=== PATIENT | male | born 1975 | race Caucasian/White ===

== ENCOUNTER 2020-03-13 12:21 | Inpatient (IN) | payer MEDICAID, SELFPAY ==
[2020-03-13] VITALS (8 sets, daily range): BP systolic 00–142; BP diastolic 00–78; PULSE 80–122; RESP 16–50; TEMP 36–37.6; O2SAT 95–97; BMI 28.1
--- NOTE | 2020-03-13 13:15 | ECG_ITS ---
Test Reason : WEAKNESS Blood Pressure : / mmHG Vent. Rate : 123 BPM Atrial Rate : 123 BPM P-R Int : 150 ms QRS Dur : 094 ms QT Int : 322 ms P-R-T Axes : 046 003 031 degrees QTc Int : 460 ms Sinus tachycardia Intra-ventricular conduction delay Left axis deviation Abnormal ECG When compared with ECG of 27-APR-2009 14:15, Vent. rate has increased BY 49 BPM Referred By: Adriana Stewart Electronically Signed By:CLAY HORTON MD
[2020-03-13] MEDS: Acetaminophen 325 MG TABLET 975 MG PO (13:32)
[2020-03-13] MEDS: LORazepam 0.5 MG TABLET PO (13:33)
--- NOTE | 2020-03-13 13:33 | ED_ITS ---
HPI - SOB/Dyspnea General Chief Complaint: Dyspnea Stated Complaint: sob Time Seen by Provider: 03/13/20 13:01 Source: patient Mode of arrival: ambulatory Limitations: no limitations History of Present Illness HPI Narrative: 45yoM c PMHx of alcohol and cocaine dependence, depression and chronic neck pain presenting to the ED c c/o generalized weakness, subjective fevers, body aches, dizziness, dry cough with increasing shortness of breath, sore throat and upper back pain. Denies IV drug usage. Reports he currently lives in a alf in [place]. Denies any known sick contacts. Denies recent travel or any other symptoms complaints or concerns at this time. Related Data Allergies Allergy/AdvReac Type Severity Reaction Status Date / Time acetaminophen [From PERCOCET] AdvReac Unknown NAUSEA & Unverified 01/14/20 16:40 VOMITING oxycodone [From PERCOCET] AdvReac Unknown NAUSEA & Unverified 01/14/20 16:40 VOMITING Review of Systems Review of Systems: Constitutional : + Fever, + Chills, + fatigue, + Malaise ENT/Mouth : + sore throat, No runny nose Eyes: No Discharge Cardiovascular : No Chest Pain, + SOB Respiratory : + Cough, No Sputum, + Wheezing, + Dyspnea Gastrointestinal : No Nausea, No Vomiting, No Diarrhea Genitourinary : No irregular bleeding, No Dysuria, No Urinary Frequency, No Hematuria, No Urinary Incontinence, No Urgency, No Flank Pain, Musculoskeletal : + Myalgia Skin : No rash Neuro : No Headache Yes all other systems are reviewed and are negative [facility] Past Medical History Attestation statement: The following information was validated with the patient. Medical History No known health problems Social History Social History Advance Directives: No Advance Directives Information Provided: Yes Physical Exam Vital Signs: Vital Signs: Last Vital Signs Temp 99.7 F 03/13/20 15:50 Pulse 122 H 03/13/20 15:50 Resp 16 03/13/20 15:50 BP 142/78 H 03/13/20 15:50 Pulse Ox 97 03/13/20 15:50 Body Mass Index 28.1 vital signs have been reviewed as normal and appeared to be correct. Blood pressure normal. Heart rate tachycardic. Respiration rate tachypneic. Temperature normal. Oxygen saturation normal. Appearance: Alert. Oriented X3. in Mild respiratory distress. Head: Normal external exam. Normocephalic. Atraumatic. No Velazquez signs noted. No raccoon eyes noted Eyes: PERRLA. EOMI. Conjunctiva and sclera normal. Eyelids normal. ENT: EAC normal. TM's Normal. Pharynx normal. Uvula midline. Moist mucous membranes. No trismus noted. No drooling noted. No muffled voice noted. Neck: Normal inspection. Neck supple. FROM. No adenopathy. Thyroid Normal. No meningeal signs. No neck mass noted. CVS: Normal heart rate and rhythm. Heart sound normal. No murmurs noted. Pulses normal throughout. Respiratory: No respiratory distress. Painless inspiration. Breath sounds normal. No wheezes/rales/rhonchi noted. Chest nontender. No accessory muscle usage noted or decreased air movement noted. Abdomen: Soft and nontender. Bowel sounds normal in all 4 quadrants. No distention noted. No organomegaly noted. No visible injury noted. Back: No CVA tenderness. Full range of motion noted. No obvious deformities, or edema. Mild para-spinal muscular tenderness from lumbar region to coccyx. Full ROM in back and lower extremities. 5/5 strength hip extension/flexion, abduction, adduction. Mild Lumbar pain with hip flexion against resistance. Straight leg raise test negative on right; Straight leg raise test negative on left; Reflexes normal ankle and knee bilaterally; EHL motor strength normal bilaterally Skin: Skin warm and dry. Normal skin color. Normal skin turgor. No rashes/lesions/lacerations noted. Extremities: No lower extremity edema. No calf tenderness. Extremities exhibit normal range of motion. Extremities nontender. Neuro: Oriented X 3. No motor deficit. No sensory deficit. Reflexes normal. Course Course Course Narrative: 13:15PM - 45yoM c PMHx of alcohol and cocaine dependence, depression and chronic neck pain presenting to the ED c c/o generalized weakness, subjective fevers, body aches, dizziness, dry cough with increasing shortness of breath, sore throat and upper back pain. - Concern for COVID-19 vs PNA. - Plan: Labs, EKG, CXR, Blood cultures, lactic acid. Provide IV fluids, 0.5 mg of Ativan, a breathing treatment, 975 mg of Tylenol and 125 mg of Solu-Medrol then re-evaluate. Reevaluation(s) Reevaluation #1: - WBC at 4.4. Lactic acid 2.8. Ferritin 337. D-dimer 369 Otherwise all other labs are WNL. - respiratory panel revealed that patient was positive for COVID. - CTA of chest on specific - therefore patient has a viral infection not a bacterial infection therefore no antibiotics indicated at this time as patient is COVID positive. Will plan to admit for COVID. Patient understands agrees with this plan. Time: 15:45 MDM - SOB/Dyspnea Medical Records Attestation: I reviewed the patient's medical records. Lab Data Attestation: I reviewed the patient's lab results. Result diagrams: 03/13/20 13:46 03/13/20 13:47 Labs: Lab Results 03/13/20 03/13/20 03/13/20 Range/Units 13:37 13:46 13:46 WBC 4.4 L (4.8-10.8) X10*3/uL RBC 5.19 (4.60-5.80) X10*6/uL Hgb 15.8 (14.0-18.0) g/dl Hct 45.9 (42-52) % MCV 88.4 (80-98) fL MCH 30.4 (27.0-33.0) pg MCHC 34.4 (31.0-36.0) g/dl RDW 12.1 (11.0-16.0) % Plt Count 160 (160-400) X10*3/uL MPV 10.6 (9.4-12.4) fL Immature Gran % (Auto) 0.2 (0.0-0.4) % Neut % (Auto) 56.2 (45-73) % Lymph % (Auto) 33.1 (20-40) % [place] % (Auto) 10.0 (2-11) % Eos % (Auto) 0.0 (0-4) % Baso % (Auto) 0.5 (0-2) % Lymph # (Auto) 1.5 (1.2-4.9) X10*3/uL [place] # (Auto) 0.4 (0.1-1.2) X10*3/uL Eos # (Auto) 0.0 (0.0-0.4) X10*3/uL Baso # (Auto) 0.0 (0.0-0.2) X10*3/uL Abs Immat Gran (auto) 0.01 (0.00-0.03) X10*3/uL Absolute Neuts (auto) 2.5 (2.0-8.3) X10*3/uL Absolute Nucleated RBC 0.000 (0.0-0.012) X10*3/uL Nucleated RBC % (auto) 0.0 (0.0-0.2) /100WBC Smear Tech's Comments VERIFIED PT 12.5 (10.8-13.0) SEC INR 1.1 (0.9-1.1) D-Dimer NG/ML Sodium (135-145) mmol/L Potassium (3.3-5.1) mmol/l Chloride (96-108) mmol/L Carbon Dioxide (22-29) mmol/L Anion Gap (12-20) BUN (9-16) mg/dL Creatinine (0.5-1.4) mg/dL Estim Creat Clear Calc Estimated GFR Random Glucose (60-115) mg/dL Lactic Acid (0.5-2.0) mmol/L Calcium (8.4-10.2) mg/dL Magnesium (1.6-2.6) mg/dL Ferritin (20-250) ng/mL Total Bilirubin (0.0-1.0) mg/dL Direct Bilirubin (0.0-0.5) mg/dL AST (5-37) U/L ALT (0-40) U/L Alkaline Phosphatase (39-117) U/L Lactate Dehydrogenase (118-273) U/L Troponin I High Sens (<3.5-35.0) ng/L Total Protein (6.5-8.0) g/dL Albumin (3.5-5.0) g/dL Procalcitonin ng/mL Ethyl Alcohol mg/dL Respiratory Panel Simpson See Note Adenovirus (Rapid PCR) Not Detected (Not Detect.) B.pert (TEM-PCR) Not Detected (Not Detect.) B.parapertussis DNA PCR Not Detected (Not Detect.) C. pneumoniae DNA (PCR) Not Detected (Not Detect.) Coronavirus OC43 (PCR) Not Detected (Not Detect.) Coronavirus HKU1 (PCR) Not Detected (Not Detect.) Coronavirus 229E (PCR) Not Detected (Not Detect.) Coronavirus NL63 (PCR) Not Detected (Not Detect.) Human Metapneumovir PCR Not Detected (Not Detect.) Influenza A (RT-PCR) Not Detected (Not Detect.) Influenza B (RT-PCR) Not Detected (Not Detect.) M. pneumoniae (PCR) Not Detected (Not Detect.) Parainfluenza 1 (PCR) Not Detected (Not Detect.) Parainfluenza 2 (PCR) Not Detected (Not Detect.) Parainfluenza 3 (PCR) Not Detected (Not Detect.) Parainfluenza 4 (PCR) Not Detected (Not Detect.) RSV (PCR) Not Detected (Not Detect.) Entero/Rhino (PCR) Not Detected (Not Detect.) SARS-CoV-2 RNA (RT-PCR) Detected A (Not Detect.) 03/13/20 03/13/20 03/13/20 Range/Units 13:47 13:47 13:47 WBC (4.8-10.8) X10*3/uL RBC (4.60-5.80) X10*6/uL Hgb (14.0-18.0) g/dl Hct (42-52) % MCV (80-98) fL MCH (27.0-33.0) pg MCHC (31.0-36.0) g/dl RDW (11.0-16.0) % Plt Count (160-400) X10*3/uL MPV (9.4-12.4) fL Immature Gran % (Auto) (0.0-0.4) % Neut % (Auto) (45-73) % Lymph % (Auto) (20-40) % [place] % (Auto) (2-11) % Eos % (Auto) (0-4) % Baso % (Auto) (0-2) % Lymph # (Auto) (1.2-4.9) X10*3/uL [place] # (Auto) (0.1-1.2) X10*3/uL Eos # (Auto) (0.0-0.4) X10*3/uL Baso # (Auto) (0.0-0.2) X10*3/uL Abs Immat Gran (auto) (0.00-0.03) X10*3/uL Absolute Neuts (auto) (2.0-8.3) X10*3/uL Absolute Nucleated RBC (0.0-0.012) X10*3/uL Nucleated RBC % (auto) (0.0-0.2) /100WBC Smear Tech's Comments PT (10.8-13.0) SEC INR (0.9-1.1) D-Dimer 369 NG/ML Sodium 139 (135-145) mmol/L Potassium 4.6 (3.3-5.1) mmol/l Chloride 103 (96-108) mmol/L Carbon Dioxide 23 (22-29) mmol/L Anion Gap 18 (12-20) BUN 15 (9-16) mg/dL Creatinine 1.22 (0.5-1.4) mg/dL Estim Creat Clear Calc 79.0 Estimated GFR > 60 Random Glucose 98 (60-115) mg/dL Lactic Acid 2.8 H* (0.5-2.0) mmol/L Calcium 8.5 (8.4-10.2) mg/dL Magnesium 1.9 (1.6-2.6) mg/dL Ferritin (20-250) ng/mL Total Bilirubin 0.4 (0.0-1.0) mg/dL Direct Bilirubin < 0.2 (0.0-0.5) mg/dL AST 33 (5-37) U/L ALT 28 (0-40) U/L Alkaline Phosphatase 78 (39-117) U/L Lactate Dehydrogenase (118-273) U/L Troponin I High Sens (<3.5-35.0) ng/L Total Protein 7.1 (6.5-8.0) g/dL Albumin 4.2 (3.5-5.0) g/dL Procalcitonin ng/mL Ethyl Alcohol mg/dL Respiratory Panel Simpson Adenovirus (Rapid PCR) (Not Detect.) B.pert (TEM-PCR) (Not Detect.) B.parapertussis DNA PCR (Not Detect.) C. pneumoniae DNA (PCR) (Not Detect.) Coronavirus OC43 (PCR) (Not Detect.) Coronavirus HKU1 (PCR) (Not Detect.) Coronavirus 229E (PCR) (Not Detect.) Coronavirus NL63 (PCR) (Not Detect.) Human Metapneumovir PCR (Not Detect.) Influenza A (RT-PCR) (Not Detect.) Influenza B (RT-PCR) (Not Detect.) M. pneumoniae (PCR) (Not Detect.) Parainfluenza 1 (PCR) (Not Detect.) Parainfluenza 2 (PCR) (Not Detect.) Parainfluenza 3 (PCR) (Not Detect.) Parainfluenza 4 (PCR) (Not Detect.) RSV (PCR) (Not Detect.) Entero/Rhino (PCR) (Not Detect.) SARS-CoV-2 RNA (RT-PCR) (Not Detect.) 03/13/20 03/13/20 03/13/20 Range/Units 13:47 13:47 13:47 WBC (4.8-10.8) X10*3/uL RBC (4.60-5.80) X10*6/uL Hgb (14.0-18.0) g/dl Hct (42-52) % MCV (80-98) fL MCH (27.0-33.0) pg MCHC (31.0-36.0) g/dl RDW (11.0-16.0) % Plt Count (160-400) X10*3/uL MPV (9.4-12.4) fL Immature Gran % (Auto) (0.0-0.4) % Neut % (Auto) (45-73) % Lymph % (Auto) (20-40) % [place] % (Auto) (2-11) % Eos % (Auto) (0-4) % Baso % (Auto) (0-2) % Lymph # (Auto) (1.2-4.9) X10*3/uL [place] # (Auto) (0.1-1.2) X10*3/uL Eos # (Auto) (0.0-0.4) X10*3/uL Baso # (Auto) (0.0-0.2) X10*3/uL Abs Immat Gran (auto) (0.00-0.03) X10*3/uL Absolute Neuts (auto) (2.0-8.3) X10*3/uL Absolute Nucleated RBC (0.0-0.012) X10*3/uL Nucleated RBC % (auto) (0.0-0.2) /100WBC Smear Tech's Comments PT (10.8-13.0) SEC INR (0.9-1.1) D-Dimer NG/ML Sodium (135-145) mmol/L Potassium (3.3-5.1) mmol/l Chloride (96-108) mmol/L Carbon Dioxide (22-29) mmol/L Anion Gap (12-20) BUN (9-16) mg/dL Creatinine (0.5-1.4) mg/dL Estim Creat Clear Calc Estimated GFR Random Glucose (60-115) mg/dL Lactic Acid (0.5-2.0) mmol/L Calcium (8.4-10.2) mg/dL Magnesium (1.6-2.6) mg/dL Ferritin 337 H (20-250) ng/mL Total Bilirubin (0.0-1.0) mg/dL Direct Bilirubin (0.0-0.5) mg/dL AST (5-37) U/L ALT (0-40) U/L Alkaline Phosphatase (39-117) U/L Lactate Dehydrogenase 241 (118-273) U/L Troponin I High Sens 3.9 (<3.5-35.0) ng/L Total Protein (6.5-8.0) g/dL Albumin (3.5-5.0) g/dL Procalcitonin ng/mL Ethyl Alcohol < 10 mg/dL Respiratory Panel Simpson Adenovirus (Rapid PCR) (Not Detect.) B.pert (TEM-PCR) (Not Detect.) B.parapertussis DNA PCR (Not Detect.) C. pneumoniae DNA (PCR) (Not Detect.) Coronavirus OC43 (PCR) (Not Detect.) Coronavirus HKU1 (PCR) (Not Detect.) Coronavirus 229E (PCR) (Not Detect.) Coronavirus NL63 (PCR) (Not Detect.) Human Metapneumovir PCR (Not Detect.) Influenza A (RT-PCR) (Not Detect.) Influenza B (RT-PCR) (Not Detect.) M. pneumoniae (PCR) (Not Detect.) Parainfluenza 1 (PCR) (Not Detect.) Parainfluenza 2 (PCR) (Not Detect.) Parainfluenza 3 (PCR) (Not Detect.) Parainfluenza 4 (PCR) (Not Detect.) RSV (PCR) (Not Detect.) Entero/Rhino (PCR) (Not Detect.) SARS-CoV-2 RNA (RT-PCR) (Not Detect.) 03/13/20 Range/Units 13:47 WBC (4.8-10.8) X10*3/uL RBC (4.60-5.80) X10*6/uL Hgb (14.0-18.0) g/dl Hct (42-52) % MCV (80-98) fL MCH (27.0-33.0) pg MCHC (31.0-36.0) g/dl RDW (11.0-16.0) % Plt Count (160-400) X10*3/uL MPV (9.4-12.4) fL Immature Gran % (Auto) (0.0-0.4) % Neut % (Auto) (45-73) % Lymph % (Auto) (20-40) % [place] % (Auto) (2-11) % Eos % (Auto) (0-4) % Baso % (Auto) (0-2) % Lymph # (Auto) (1.2-4.9) X10*3/uL [place] # (Auto) (0.1-1.2) X10*3/uL Eos # (Auto) (0.0-0.4) X10*3/uL Baso # (Auto) (0.0-0.2) X10*3/uL Abs Immat Gran (auto) (0.00-0.03) X10*3/uL Absolute Neuts (auto) (2.0-8.3) X10*3/uL Absolute Nucleated RBC (0.0-0.012) X10*3/uL Nucleated RBC % (auto) (0.0-0.2) /100WBC Smear Tech's Comments PT (10.8-13.0) SEC INR (0.9-1.1) D-Dimer NG/ML Sodium (135-145) mmol/L Potassium (3.3-5.1) mmol/l Chloride (96-108) mmol/L Carbon Dioxide (22-29) mmol/L Anion Gap (12-20) BUN (9-16) mg/dL Creatinine (0.5-1.4) mg/dL Estim Creat Clear Calc Estimated GFR Random Glucose (60-115) mg/dL Lactic Acid (0.5-2.0) mmol/L Calcium (8.4-10.2) mg/dL Magnesium (1.6-2.6) mg/dL Ferritin (20-250) ng/mL Total Bilirubin (0.0-1.0) mg/dL Direct Bilirubin (0.0-0.5) mg/dL AST (5-37) U/L ALT (0-40) U/L Alkaline Phosphatase (39-117) U/L Lactate Dehydrogenase (118-273) U/L Troponin I High Sens (<3.5-35.0) ng/L Total Protein (6.5-8.0) g/dL Albumin (3.5-5.0) g/dL Procalcitonin 0.04 ng/mL Ethyl Alcohol mg/dL Respiratory Panel Simpson Adenovirus (Rapid PCR) (Not Detect.) B.pert (TEM-PCR) (Not Detect.) B.parapertussis DNA PCR (Not Detect.) C. pneumoniae DNA (PCR) (Not Detect.) Coronavirus OC43 (PCR) (Not Detect.) Coronavirus HKU1 (PCR) (Not Detect.) Coronavirus 229E (PCR) (Not Detect.) Coronavirus NL63 (PCR) (Not Detect.) Human Metapneumovir PCR (Not Detect.) Influenza A (RT-PCR) (Not Detect.) Influenza B (RT-PCR) (Not Detect.) M. pneumoniae (PCR) (Not Detect.) Parainfluenza 1 (PCR) (Not Detect.) Parainfluenza 2 (PCR) (Not Detect.) Parainfluenza 3 (PCR) (Not Detect.) Parainfluenza 4 (PCR) (Not Detect.) RSV (PCR) (Not Detect.) Entero/Rhino (PCR) (Not Detect.) SARS-CoV-2 RNA (RT-PCR) (Not Detect.) Imaging Data CTA of chest: Attestation: I personally reviewed and interpreted this imaging study as follows: Radiologist's impression: FINDINGS: The heart is normal in size. There is no pericardial effusion. No filling defect identified within the main or segmental pulmonary arteries. Subsegmental pulmonary arteries are suboptimally visualized secondary to respiratory motion artifact, however, no gross distal pulmonary arterial filling defects are appreciated. Nonaneurysmal thoracic aorta. The lungs are adequately aerated. Patchy primarily groundglass densities are noted within the bilateral lung bases and left upper lobe. Some emphysematous changes are noted throughout the lungs, also most prominent within the left upper lobe. No pleural effusion is present. No pneumothorax. Visualized portion of the upper abdomen are grossly unremarkable. Mild diffuse degenerative changes of the spine. CT/CT angio chest PE protocol IMPRESSION: Unfortunately, today's examination is significantly limited secondary to respiratory motion artifact. No gross main or segmental pulmonary emboli are noted, however, subsegmental pulmonary emboli cannot be excluded. There is patchy left upper lobe airspace disease with some associated cystic emphysematous changes which are nonspecific. This may represent an acute on chronic infectious process. Unfortunately, there is no prior imaging available for comparison. Dependent patchy opacities are poorly visualized and may represent nothing more than atelectasis. Clinical correlation is recommended. Given poor quality of today's CTA, repeat imaging can be obtained if clinically indicated once the patient is able to better breath-hold ECG Data Attestation: I personally reviewed and interpreted this ECG as follows: ECG interpretation date: 03/13/20 ECG interpretation time: 15:43 Interpretation: Sinus tachycardia with ventricular rate of 123 with a normal DE interval and normal QRS duration normal QT/QTC interval. No acute ischemic changes noted. Similar compared to 04/27/2009. Critical Care Time Critical Care Time Critical Care Time: Yes Total Critical Care Time: 60 Attestation: I personally attest to this time spent taking care of the patient Discharge Plan Discharge Clinical Impression: COVID-19, Viral sepsis Patient Disposition: Admitted As Inpatient
[2020-03-13] MEDS: 0.9 % Sodium Chloride 1,000 ML 500 ML IVCONT (13:51)
[2020-03-13 13:59] LABS: Basophils Percent Auto 0.5 % (0-2); Hematocrit 45.9 % (42-52); Hemoglobin 15.8 g/dl (14.0-18.0); Imm Gran Abs Auto 0.01 X10*3/uL (0.00-0.03); Imm Gran Pct Auto 0.2 % (0.0-0.4); Lymphocytes Absolute Auto 1.5 X10*3/uL (1.2-4.9); Lymphocytes Percent Auto 33.1 % (20-40); MANUAL DIFF FLAG SCAN; Mean Corpuscular HGB Conc 34.4 g/dl (31.0-36.0); Mean Corpuscular Hemoglobin 30.4 pg (27.0-33.0); Mean Corpuscular Volume 88.4 fL (80-98); Mean Platelet Volume 10.6 fL (9.4-12.4); Monocytes Absolute Auto 0.4 X10*3/uL (0.1-1.2); Neutrophils Absolute Auto 2.5 X10*3/uL (2.0-8.3); Neutrophils Percent Auto 56.2 % (45-73); Platelet Count 160 X10*3/uL (160-400); Red Blood Count 5.19 X10*6/uL (4.60-5.80); Red Cell Distribution Width 12.1 % (11.0-16.0); SCAN SMEAR FLAG 1; White Blood Count 4.4 X10*3/uL (4.8-10.8)
[2020-03-13] MEDS: Albuterol Sulfate (0.083%) 2.5 MG/3 ML VIAL.NEB 10 MG INHALE (14:00)
[2020-03-13 14:05] LABS: INTERNATIONAL NORM RATIO 1.1 (0.9-1.1); Prothrombin Time 12.5 SEC (10.8-13.0)
[2020-03-13 14:08] LABS: Adenovirus PCR Not Detected (Not Detect.); Bordetella parapertussis PCR Not Detected (Not Detect.); Bordetella pertussis PCR Not Detected (Not Detect.); Chlamydia pneumoniae PCR Not Detected (Not Detect.); Coronavirus 229E PCR Not Detected (Not Detect.); Coronavirus HKU1 PCR Not Detected (Not Detect.); Coronavirus NL63 PCR Not Detected (Not Detect.); Coronavirus OC43 PCR Not Detected (Not Detect.); Human metapneumovirus PCR Not Detected (Not Detect.); Influenza A PCR Not Detected (Not Detect.); Influenza B PCR Not Detected (Not Detect.); Mycoplasma pneumoniae PCR Not Detected (Not Detect.); Parainfluenza 1 PCR Not Detected (Not Detect.); Parainfluenza 2 PCR Not Detected (Not Detect.); Parainfluenza 3 PCR Not Detected (Not Detect.); Parainfluenza 4 PCR Not Detected (Not Detect.); RSV PCR Not Detected (Not Detect.); Rhino/Enterovirus PCR Not Detected (Not Detect.)
[2020-03-13 14:09] LABS: D Dimer 369 NG/ML
--- NOTE | 2020-03-13 14:19 | CT_ITS ---
EXAMINATION: CT ANGIOGRAM OF THE CHEST WITH AND WITHOUT CONTRAST (CT PULMONARY ANGIOGRAM FOR PE) CLINICAL INFORMATION: Shortness of breath with elevated d-dimer. COMPARISON: None TECHNIQUE: Prior to contrast administration, noncontrast localization images were obtained. Subsequently, multidetector volumetric imaging was performed from the thoracic inlet to below the diaphragms following the administration of 66 mLOmnipaque 350 intravenous contrast. No contrast reaction reported Today's examination is limited secondary to respiratory motion artifact. Sagittal, coronal, and MIP oblique sagittal reformatted images were obtained on the CT workstation, uploaded to PACS, and reviewed. This CT examination was performed using dose optimization techniques as appropriate, variously including the following: *Automated exposure control *Adjustment of mA and/or kV according to patient size (this includes techniques or standardized protocols for targeted exams where dose is matched to indication/reason for exam; i.e. extremities or head) *Use of iterative reconstruction technique Total exam dose-length product 301 mGy-cm FINDINGS: The heart is normal in size. There is no pericardial effusion. No filling defect identified within the main or segmental pulmonary arteries. Subsegmental pulmonary arteries are suboptimally visualized secondary to respiratory motion artifact, however, no gross distal pulmonary arterial filling defects are appreciated. Nonaneurysmal thoracic aorta. The lungs are adequately aerated. Patchy primarily groundglass densities are noted within the bilateral lung bases and left upper lobe. Some emphysematous changes are noted throughout the lungs, also most prominent within the left upper lobe. No pleural effusion is present. No pneumothorax. Visualized portion of the upper abdomen are grossly unremarkable. Mild diffuse degenerative changes of the spine. CT/CT angio chest PE protocol IMPRESSION: Unfortunately, today's examination is significantly limited secondary to respiratory motion artifact. No gross main or segmental pulmonary emboli are noted, however, subsegmental pulmonary emboli cannot be excluded. There is patchy left upper lobe airspace disease with some associated cystic emphysematous changes which are nonspecific. This may represent an acute on chronic infectious process. Unfortunately, there is no prior imaging available for comparison. Dependent patchy opacities are poorly visualized and may represent nothing more than atelectasis. Clinical correlation is recommended. Given poor quality of today's CTA, repeat imaging can be obtained if clinically indicated once the patient is able to better breath-hold.
[2020-03-13 14:23] LABS: Ethanol < 10 mg/dL
[2020-03-13 14:24] LABS: Lactate Dehydrogenase 241 U/L (118-273)
[2020-03-13 14:25] LABS: Alanine Aminotransferase 28 U/L (0-40); Albumin Level 4.2 g/dL (3.5-5.0); Alkaline Phosphatase 78 U/L (39-117); Anion Gap 18 (12-20); Aspartate Amino Transferase 33 U/L (5-37); Bilirubin Direct < 0.2 mg/dL (0.0-0.5); Bilirubin Total 0.4 mg/dL (0.0-1.0); Blood Urea Nitrogen 15 mg/dL (9-16); Calcium 8.5 mg/dL (8.4-10.2); Carbon Dioxide 23 mmol/L (22-29); Chloride 103 mmol/L (96-108); Estimated Glomerular Filt Rate > 60; Glucose Random 98 mg/dL (60-115); Magnesium 1.9 mg/dL (1.6-2.6); Potassium 4.6 mmol/l (3.3-5.1); Sodium 139 mmol/L (135-145); Total Protein 7.1 g/dL (6.5-8.0)
[2020-03-13 14:27] LABS: SLIDE REVIEW VERIFIED
[2020-03-13 14:29] LABS: Troponin-I High Sensitivity 3.9 ng/L (<3.5-35.0)
[2020-03-13 14:31] LABS: Lactic Acid 2.8 mmol/L (0.5-2.0)
[2020-03-13 14:43] LABS: Procalcitonin 0.04 ng/mL
[2020-03-13 14:46] LABS: Ferritin 337 ng/mL (20-250)
[2020-03-13 15:01] LABS: SARS-CoV-2 PCR Detected (Not Detect.)
[2020-03-13 15:57] LABS: Reflex Lactate? Lactic Acid Added
[2020-03-13] MEDS: iohexoL 350 MG/ML 100 ML INFUS..BTL IV (16:41)
[2020-03-13 16:59] LABS: ~Lactic Acid-LAB USE ONLY 2.8 mmol/L (0.5-2.0)
[2020-03-13] MEDS: 0.9 % Sodium Chloride 1,000 ML 999 ML IVCONT ×2 (17:11→21:56)
[2020-03-13] MEDS: LORazepam 2 MG/ML VIAL 0.5 MG IVPUSH (17:12)
--- NOTE | 2020-03-13 17:52 | P.HPHOSP_ITS ---
History of Present Illness Date of Service: 03/13/20 Chief Complaint: shortness of breath Three days of weakness, neck pain, and dry cough. [facility] Medical History No known health problems Social History Smoking Status: Current every day smoker Use of substances other than those prescribed or required for medical reasons: Yes Substance Use Type: Crack/Cocaine Advance Directives: No Advance Directives Information Provided: Yes Meds Allergies Allergy/AdvReac Type Severity Reaction Status Date / Time acetaminophen [From PERCOCET] AdvReac Unknown NAUSEA & Unverified 01/14/20 16:40 VOMITING oxycodone [From PERCOCET] AdvReac Unknown NAUSEA & Unverified 01/14/20 16:40 VOMITING Home Medications Medication Instructions Recorded Confirmed Type No Known Home Meds 03/13/20 03/13/20 History Physical Exam Vital Signs and Narrative: Vital Signs: Last Vital Signs Temp 99.0 F 03/13/20 17:14 Pulse 111 H 03/13/20 17:14 Resp 30 H 03/13/20 17:14 BP 105/61 03/13/20 17:14 Pulse Ox 97 03/13/20 15:50 Body Mass Index 28.1 Results Labs CBC and Chem 7: 03/13/20 13:46 03/13/20 13:47 Labs: Laboratory Results - last 24 hr 03/13/20 03/13/20 03/13/20 13:37 13:46 13:46 MCV 88.4 MCH 30.4 MCHC 34.4 RDW 12.1 Plt Count 160 MPV 10.6 Immature Gran % (Auto) 0.2 Neut % (Auto) 56.2 Lymph % (Auto) 33.1 [place] % (Auto) 10.0 Eos % (Auto) 0.0 Baso % (Auto) 0.5 Lymph # (Auto) 1.5 [place] # (Auto) 0.4 Eos # (Auto) 0.0 Baso # (Auto) 0.0 Abs Immat Gran (auto) 0.01 Absolute Neuts (auto) 2.5 Absolute Nucleated RBC 0.000 Nucleated RBC % (auto) 0.0 Smear Tech's Comments VERIFIED PT 12.5 INR 1.1 D-Dimer Anion Gap Estim Creat Clear Calc Estimated GFR Random Glucose Lactic Acid Lactic Acid Fup @ 2Hr Calcium Magnesium Ferritin Total Bilirubin Direct Bilirubin AST ALT Alkaline Phosphatase Lactate Dehydrogenase Troponin I High Sens Total Protein Albumin Procalcitonin Ethyl Alcohol Respiratory Panel Simpson See Note Adenovirus (Rapid PCR) Not Detected B.pert (TEM-PCR) Not Detected B.parapertussis DNA PCR Not Detected C. pneumoniae DNA (PCR) Not Detected Coronavirus OC43 (PCR) Not Detected Coronavirus HKU1 (PCR) Not Detected Coronavirus 229E (PCR) Not Detected Coronavirus NL63 (PCR) Not Detected Human Metapneumovir PCR Not Detected Influenza A (RT-PCR) Not Detected Influenza B (RT-PCR) Not Detected M. pneumoniae (PCR) Not Detected Parainfluenza 1 (PCR) Not Detected Parainfluenza 2 (PCR) Not Detected Parainfluenza 3 (PCR) Not Detected Parainfluenza 4 (PCR) Not Detected RSV (PCR) Not Detected Entero/Rhino (PCR) Not Detected SARS-CoV-2 RNA (RT-PCR) Detected A 03/13/20 03/13/20 03/13/20 13:47 13:47 13:47 MCV MCH MCHC RDW Plt Count MPV Immature Gran % (Auto) Neut % (Auto) Lymph % (Auto) [place] % (Auto) Eos % (Auto) Baso % (Auto) Lymph # (Auto) [place] # (Auto) Eos # (Auto) Baso # (Auto) Abs Immat Gran (auto) Absolute Neuts (auto) Absolute Nucleated RBC Nucleated RBC % (auto) Smear Tech's Comments PT INR D-Dimer 369 Anion Gap 18 Estim Creat Clear Calc 79.0 Estimated GFR > 60 Random Glucose 98 Lactic Acid 2.8 H* Lactic Acid Fup @ 2Hr Calcium 8.5 Magnesium 1.9 Ferritin Total Bilirubin 0.4 Direct Bilirubin < 0.2 AST 33 ALT 28 Alkaline Phosphatase 78 Lactate Dehydrogenase Troponin I High Sens Total Protein 7.1 Albumin 4.2 Procalcitonin Ethyl Alcohol Respiratory Panel Simpson Adenovirus (Rapid PCR) B.pert (TEM-PCR) B.parapertussis DNA PCR C. pneumoniae DNA (PCR) Coronavirus OC43 (PCR) Coronavirus HKU1 (PCR) Coronavirus 229E (PCR) Coronavirus NL63 (PCR) Human Metapneumovir PCR Influenza A (RT-PCR) Influenza B (RT-PCR) M. pneumoniae (PCR) Parainfluenza 1 (PCR) Parainfluenza 2 (PCR) Parainfluenza 3 (PCR) Parainfluenza 4 (PCR) RSV (PCR) Entero/Rhino (PCR) SARS-CoV-2 RNA (RT-PCR) 03/13/20 03/13/20 03/13/20 13:47 13:47 13:47 MCV MCH MCHC RDW Plt Count MPV Immature Gran % (Auto) Neut % (Auto) Lymph % (Auto) [place] % (Auto) Eos % (Auto) Baso % (Auto) Lymph # (Auto) [place] # (Auto) Eos # (Auto) Baso # (Auto) Abs Immat Gran (auto) Absolute Neuts (auto) Absolute Nucleated RBC Nucleated RBC % (auto) Smear Tech's Comments PT INR D-Dimer Anion Gap Estim Creat Clear Calc Estimated GFR Random Glucose Lactic Acid Lactic Acid Fup @ 2Hr Calcium Magnesium Ferritin 337 H Total Bilirubin Direct Bilirubin AST ALT Alkaline Phosphatase Lactate Dehydrogenase 241 Troponin I High Sens 3.9 Total Protein Albumin Procalcitonin Ethyl Alcohol < 10 Respiratory Panel Simpson Adenovirus (Rapid PCR) B.pert (TEM-PCR) B.parapertussis DNA PCR C. pneumoniae DNA (PCR) Coronavirus OC43 (PCR) Coronavirus HKU1 (PCR) Coronavirus 229E (PCR) Coronavirus NL63 (PCR) Human Metapneumovir PCR Influenza A (RT-PCR) Influenza B (RT-PCR) M. pneumoniae (PCR) Parainfluenza 1 (PCR) Parainfluenza 2 (PCR) Parainfluenza 3 (PCR) Parainfluenza 4 (PCR) RSV (PCR) Entero/Rhino (PCR) SARS-CoV-2 RNA (RT-PCR) 03/13/20 03/13/20 13:47 16:27 MCV MCH MCHC RDW Plt Count MPV Immature Gran % (Auto) Neut % (Auto) Lymph % (Auto) [place] % (Auto) Eos % (Auto) Baso % (Auto) Lymph # (Auto) [place] # (Auto) Eos # (Auto) Baso # (Auto) Abs Immat Gran (auto) Absolute Neuts (auto) Absolute Nucleated RBC Nucleated RBC % (auto) Smear Tech's Comments PT INR D-Dimer Anion Gap Estim Creat Clear Calc Estimated GFR Random Glucose Lactic Acid Lactic Acid Fup @ 2Hr 2.8 H* Calcium Magnesium Ferritin Total Bilirubin Direct Bilirubin AST ALT Alkaline Phosphatase Lactate Dehydrogenase Troponin I High Sens Total Protein Albumin Procalcitonin 0.04 Ethyl Alcohol Respiratory Panel [place] Adenovirus (Rapid PCR) B.pert (TEM-PCR) B.parapertussis DNA PCR C. pneumoniae DNA (PCR) Coronavirus OC43 (PCR) Coronavirus HKU1 (PCR) Coronavirus 229E (PCR) Coronavirus NL63 (PCR) Human Metapneumovir PCR Influenza A (RT-PCR) Influenza B (RT-PCR) M. pneumoniae (PCR) Parainfluenza 1 (PCR) Parainfluenza 2 (PCR) Parainfluenza 3 (PCR) Parainfluenza 4 (PCR) RSV (PCR) Entero/Rhino (PCR) SARS-CoV-2 RNA (RT-PCR) Imaging Radiologist's Impressions: Impressions Chest CTA 03/13/20 14:19 IMPRESSION: Unfortunately, today's examination is significantly limited secondary to respiratory motion artifact. No gross main or segmental pulmonary emboli are noted, however, subsegmental pulmonary emboli cannot be excluded. There is patchy left upper lobe airspace disease with some associated cystic emphysematous changes which are nonspecific. This may represent an acute on chronic infectious process. Unfortunately, there is no prior imaging available for comparison. Dependent patchy opacities are poorly visualized and may represent nothing more than atelectasis. Clinical correlation is recommended. Given poor quality of today's CTA, repeat imaging can be obtained if clinically indicated once the patient is able to better breath-hold.
[2020-03-13] MEDS: PHENobarbitaL sodium 130 MG/ML VIAL 159 MG IM (18:29)
[2020-03-13 18:32] LABS: Reflex Lactate? 2 Y
--- NOTE | 2020-03-13 18:33 | PC.NURSE ---
AWAITING [facility] RN CALL BACK FOR REPORT.
--- NOTE | 2020-03-13 19:19 | PC.NURSE ---
Report taken from estephania Wilson awaiting transport to floor. Multiple attempts at trying to give report have been unsuccessful. Pt medicated with Nicotine patch per EMAR.
[2020-03-13] MEDS: Nicotine 21 MG PATCH.TD24 TRANSDERMA (19:20)
[2020-03-13 20:37] LABS: C Reactive Protein 3.67 mg/dL (< or = 0.50)
--- NOTE | 2020-03-13 20:41 | HP_ITS ---
DATE OF SERVICE: 03/13/2020 CHIEF COMPLAINT: Generalized weakness and neck discomfort. HISTORY OF PRESENTING ILLNESS: This is a 45-year-old gentleman with past medical history significant for mood disorder, bipolar disorder, chronic cocaine abuse, history of active tobacco use, who presented to [facility] with 3-day history of generally not feeling well with worsening generalized weakness, subjective fevers, and body aches, dry cough, and shortness of breath. The patient has chronic neck pain. He denies any sick contacts. He lives alone. He denies any recent history of travel. He denies nausea, vomiting, or diarrhea. He did not check his fevers. On arrival to the emergency room, the patient was noted to be tachypneic, tachycardic with a pulse of 122, blood pressure was stable at 142/78, finger oximetry was 97% on room air. The patient underwent extensive testing in the emergency room since his COVID-19 test came back positive. His lactic acid is elevated at 2.8, ferritin is 337. D-dimer 369. The patient underwent a CTA chest that showed no significant evidence of PE in the major arteries. There is bibasilar airspace disease and left upper lobe disease as well as emphysematous changes. The patient treated in the emergency room with IV fluids and Ativan. At the present time, the patient appears very anxious with significant tremors most pronounced in the right upper extremity, which according to the patient chronic. PAST MEDICAL HISTORY: Significant for: 1. History of bipolar disorder with multiple prior psychiatric hospitalizations. Previously, the patient is on lithium, currently not on any medications. 2. History of active cocaine abuse. The patient snorts cocaine, but denies IV drug use. He has history of tobacco use disorder. Continued to smoke 1 pack per day. PAST SURGICAL HISTORY: Benign. FAMILY HISTORY: The patient denies any significant family history of cardiac disease. SOCIAL HISTORY: The patient lives alone. He smokes 1 pack per day. According to him, he drinks 1 to 2 beers a day, but looking into his prior history, which seems that he has been drinking more than what he is admitting to. Previously, he mentioned that he was drinking 3 to 4, 12-ounce beers and prior to that, he was drinking alcohol heavily. He uses cocaine on a daily basis. REVIEW OF SYSTEMS: PRODUCTION SUPV: The patient complained of mild lightheadedness. He denies any headache. GENERAL: He complains of subjective fevers, chills. GASTROINTESTINAL: He denies any nausea, vomiting, or diarrhea. CVS: He denies any chest discomfort. RESPIRATORY: He complains of dry cough and shortness of breath. MUSCULOSKELETAL: The patient has chronic neck pain with no worsening symptoms. He also complained of lower back discomfort. SKIN: He denies any rashes. Rest of all other system are reviewed and negative. PHYSICAL EXAMINATION: GENERAL: The patient is resting comfortably. Does not appear to be in acute distress. VITAL SIGNS: Temperature of 99.7, pulse of 122, respiratory rate of 16, blood pressure 142/78, pulse ox 97% on room air. HEENT: Pupils equal, round, and reactive to light and accommodation. Anicteric sclerae. NECK: Supple. No increased JVD. No lymphadenopathy. HEART: Tachy, regular. No murmurs appreciated. RESPIRATORY: The patient in no respiratory distress. Diminished breath sound with coarse breath sounds at bases. No expiratory wheeze or rhonchi noted. ABDOMEN: Soft, nontender. Bowel sounds are audible. EXTREMITIES: Without clubbing, cyanosis, or edema. SKIN: Without any rashes. NEURO: The patient is alert, oriented. No motor deficit noted. The patient noted to have significant tremors. PSYCHIATRIC: The patient appears very anxious. LABORATORY DATA: Sodium 139, potassium 4.6, BUN 1.22, hematocrit of 45.9. Normal INR. Platelet of 160. IMAGING STUDIES: As mentioned earlier. EKG shows sinus tachycardia, otherwise no acute ischemic changes noted. ASSESSMENT AND PLAN: This is a 45-year-old gentleman with past medical history of bipolar disorder, history of daily tobacco use, alcohol abuse, and cocaine use, presented to [facility] due to generalized weakness and dry cough, subjective fevers. The patient has been diagnosed to have sepsis related to COVID-19 infection. 1. Sepsis related to COVID-19 infection. Due to history of emphysema with daily smoking, the patient is a high risk for worsening infection, therefore will be admitted under isolation. The patient will be treated with supportive care including cough medications, Ventolin MDI, Tylenol, antiemetics. We will hold off on further IV hydration. If the patient's oxygenation declines, the patient will be considered for IV dexamethasone and remdesivir treatment. 2. History of tobacco use disorder. The patient will be placed on nicotine patch, counseling done. 3. Alcohol abuse and high risk of withdrawal. The patient is minimizing use of alcohol, but due to his tremors, his anxiety, the patient will be treated with phenobarb protocol. The patient's alcohol level is less than 10. The patient will be seen by CARE team. 4. Lactic acidosis. Likely due to dehydration, decreased by p.o. intake infection as well as alcohol abuse. The patient has received 1.5 L of IV fluid. We will follow lactic acid level, also cocaine likely contributing to it. 5. History of polysubstance abuse. The patient with history of daily cocaine use. We will provide supportive care and we will obtain a CARE team consultation. 6. Deep venous thrombosis prophylaxis. The patient will be placed on Lovenox. MD JOSE ANGEL Perez/YESSY / [phone]
[2020-03-13] MEDS: PHENobarbitaL sodium 130 MG/ML VIAL 119 MG IM (20:55)
[2020-03-13] MEDS: Enoxaparin Sodium 40 MG/0.4 ML SYRINGE SUBCUT (20:55)
[2020-03-13] MEDS: 0.9 % Sodium Chloride Flush 3 ML SYRINGE IVFLUSH (20:55)
[2020-03-13 21:36] LABS: ~Lactic Acid-LAB USE ONLY 7.7 mmol/L (0.5-2.0)
[2020-03-14] MEDS: PHENobarbitaL sodium 130 MG/ML VIAL 119 MG IM (00:11)
[2020-03-14 01:22] LABS: Lactate Dehydrogenase 205 U/L (118-273)
[2020-03-14 03:07] LABS: Lactic Acid 2.2 mmol/L (0.5-2.0)
[2020-03-14] MEDS: Magnesium Hydrox/Alum Hydrox 30 ML ORAL.SUSP 15 ML PO (03:24)
[2020-03-14 03:33] LABS: Glucose Urine UA >=1000 MG/DL (NEG); Leukocyte Esterase Urine NEG (NEG); Nitrite Urine NEG (NEG); Urine Blood NEG (NEG); Urine Ketones NEG (NEG); Urine Protein NEG (NEG-TRACE)
[2020-03-14 03:34] LABS: Appearance Urine CLEAR; Color Urine YELLOW
[2020-03-14 04:02] VITALS: BP 114/72; PULSE 92; RESP 18; TEMP 36.8; O2SAT 95
[2020-03-14 04:02] LABS: RBC Urine 0 /HPF (0); WBC Urine 0 /HPF (0-4)
[2020-03-14 04:06] LABS: Amphetamine Screen Urine Not Detected (Not Detect); Barbiturates, Urine POSITIVE (Not Detect); Benzodiazepines Screen Urine Not Detected (Not Detect); Cannabinoid Screen Urine Not Detected (Not Detect); Cocaine Screen Urine POSITIVE (Not Detect); Opiate Screen Urine POSITIVE (Not Detect); Phencyclidine Screen Urine Not Detected (Not Detect)
[2020-03-14 04:27] LABS: Reflex Lactate? Lactic Acid Added
[2020-03-14 05:11] LABS: MANUAL DIFF FLAG NO
[2020-03-14 05:19] LABS: Basophils Percent Auto 0.2 % (0-2); Hematocrit 37.7 % (42-52); Hemoglobin 12.9 g/dl (14.0-18.0); Imm Gran Abs Auto 0.02 X10*3/uL (0.00-0.03); Imm Gran Pct Auto 0.4 % (0.0-0.4); Lymphocytes Absolute Auto 0.9 X10*3/uL (1.2-4.9); Lymphocytes Percent Auto 15.9 % (20-40); Mean Corpuscular HGB Conc 34.2 g/dl (31.0-36.0); Mean Corpuscular Hemoglobin 30.4 pg (27.0-33.0); Mean Corpuscular Volume 88.7 fL (80-98); Monocytes Absolute Auto 0.4 X10*3/uL (0.1-1.2); Monocytes Percent Auto 7.7 % (2-11); Neutrophils Absolute Auto 4.2 X10*3/uL (2.0-8.3); Neutrophils Percent Auto 75.8 % (45-73); Platelet Count 170 X10*3/uL (160-400); Red Blood Count 4.25 X10*6/uL (4.60-5.80); Red Cell Distribution Width 12.1 % (11.0-16.0); White Blood Count 5.5 X10*3/uL (4.8-10.8)
[2020-03-14 05:41] LABS: ~Lactic Acid-LAB USE ONLY 1.8 mmol/L (0.5-2.0)
--- NOTE | 2020-03-14 05:45 | PC.NURSE ---
Patient's lactic acid 2.8 while in ED, on admission retested 7.7. MD notified. MD ordered NS 500L Bolus. Lactic acid redrawn and trended down to 1.8. Will continue to monitor.
[2020-03-14 05:58] LABS: Anion Gap 13 (12-20); Blood Urea Nitrogen 14 mg/dL (9-16); Carbon Dioxide 22 mmol/L (22-29); Chloride 107 mmol/L (96-108); Creatinine Clr Calc Pharmacy 100.4; Estimated Glomerular Filt Rate > 60; Glucose Random 166 mg/dL (60-115); Magnesium 2.1 mg/dL (1.6-2.6); Potassium 4.2 mmol/l (3.3-5.1); Sodium 138 mmol/L (135-145)
[2020-03-14 08:00] VITALS: BP 107/68; PULSE 88; RESP 22; TEMP 36.8; O2SAT 97
[2020-03-14] MEDS: PHENobarbitaL 15 MG TABLET 45 MG PO ×2 (08:39→20:25)
[2020-03-14] MEDS: Nicotine 21 MG PATCH.TD24 TRANSDERMA (08:40)
[2020-03-14] MEDS: 0.9 % Sodium Chloride Flush 3 ML SYRINGE IVFLUSH ×3 (08:40→20:25)
--- NOTE | 2020-03-14 09:34 | MHC.CM.PN ---
Male 45 dx COVID+. Pt lives with family and G.F.. He is independent all functional mobility. DP home no services family transport.
--- NOTE | 2020-03-14 11:02 | HO.PM.IMPN ---
Subjective Subjective Date of Service: 03/14/20 Interval History: Patient complaining of persistent dry cough, shortness of breath and dry mouth, and generally not feeling well with generalized body ache,no fever chills , oxygenation remains stable. Review of Systems General Body aches, weakness, dry mouth. CVS no chest pain, no palpitation. Respiratory complaining of dry cough, shortness of breath Gastrointestinal no nausea no vomiting, no abdominal pain Physical Exam Vital Signs: Vital Signs: Last Vital Signs Temp 98.2 F 03/14/20 08:00 Pulse 88 03/14/20 08:00 Resp 22 H 03/14/20 08:00 BP 107/68 03/14/20 08:00 Pulse Ox 97 03/14/20 08:00 Body Mass Index 28.1 General patient resting comfortably in no acute distress. Neck no JVD. CVS regular, rate rhythm, Respiratory lungs clear to auscultation, no wheeze, no rhonchi. Gastrointestinal abdomen soft, nontender, bowel sounds audible, no guarding , no rigidity. Extremities no clubbing ,cyanosis or edema. Neuro nonfocal, speech clear. less tremors Skin no rash psych persistent anxiety Objective Data Current Medications Generic Name Dose Route Start Last Admin Trade Name Freq PRN Reason Stop Dose Admin Acetaminophen 650 mg 03/13/20 17:41 Acetaminophen 325 Mg Tablet PO Q6H PRN Pain, Mild (Pain Scale 1-3) Albuterol Sulfate 2 puff 03/13/20 17:41 Albuterol Sulfate 90 Mcg 8 Gm Inhaler INHALE RQ4H PRN Shortness of Breath Benzocaine 1 lozenge 03/14/20 10:58 Throat Lozenge, Medicated Lozenge MUCOUS MEM Q4H PRN Sore Throat Enoxaparin Sodium 40 mg 03/13/20 22:00 03/13/20 20:55 Enoxaparin Sodium 40 Mg/0.4 Ml Syringe SUBCUT 40 mg Q24H JONAS Administration Guaifenesin/Dextromethorphan 10 ml 03/14/20 10:58 Guaifenesin Dm 200/20/10 Ml 10 Ml Syrup PO Q6H PRN Cough Medication 1 each 03/14/20 09:00 No Benzodiazepines MISCELLANE DAILY JONAS Nicotine 21 mg 03/13/20 17:41 03/14/20 08:40 Nicotine 21 Mg Patch.Td24 TRANSDERMA 21 mg DAILY JONAS Administration Ondansetron HCl 4 mg 03/13/20 17:42 Ondansetron Hcl 4 Mg/2 Ml Vial IVPUSH Q8H PRN Nausea Pharmacy Consult 1 each 03/13/20 17:41 Consult Rx Etoh Phenob Dosing MISCELLANE ONCE PRN Consult order Protocol Phenobarbital 45 mg 03/14/20 09:00 03/14/20 08:39 Phenobarbital 15 Mg Tablet PO 03/15/20 21:01 45 mg BID JONSA Administration Phenobarbital 15 mg 03/16/20 09:00 Phenobarbital 15 Mg Tablet PO 03/17/20 21:01 BID JONAS Phenobarbital 15 mg 03/18/20 09:00 Phenobarbital 15 Mg Tablet PO 03/19/20 09:01 DAILY JONAS Sodium Chloride 3 ml 03/14/20 00:00 03/14/20 08:40 0.9 % Sodium Chloride Flush 3 Ml Syringe IVFLUSH 3 ml QSHIFT JONAS Administration Labs CBC & Chem 7: 03/14/20 04:36 03/14/20 04:36 Microbiology Microbiology Results: Microbiology 03/13/20 15:17 Blood - Venous Blood Culture - Preliminary Assessment and Plan (1) COVID-19: Status: Acute (2) Viral sepsis: Status: Acute (3) Chronic neck pain: Status: Acute (4) Cocaine abuse: Status: Acute (5) Alcohol dependence: Status: Acute (6) Depression: Status: Acute Assessment and Plan: 45-year-old gentleman with past medical history of bipolar disorder,history of daily tobacco use, alcohol abuse, and cocaine use, presented to [facility] due to generalized weakness and dry cough, subjective fevers. The patient has been diagnosed to have sepsis related to COVID-19 infection. 1. Sepsis related to COVID-19 infection. tachycardia resolved persistent tachypnea. patient complaining of persistent generalized body ache weakness, shortness of breath, dry cough and sore throat all related to COVID infection,cta chest showed no PE seen on main or segmental arteries,it showed Patchy primarily groundglass densities within the bilateral lung bases and left upper lobe. Due to emphysema Noted on CT chest ,daily smoking,he is a high risk for worsening infection, cont. isolation and supportive care, CRP 3.67, procalcitonin 0.04 cont.cough medications, Ventolin MDI, Tylenol, antiemetics. prn oxygen, add throat lozenges, hold antibiotic If oxygenation declines, then will consider IV dexamethasone and remdesivir treatment. 2. History of tobacco use disorder. continue nicotine patch, counseling done. 3. Alcohol abuse and high risk of withdrawal. continue phenobarb protocol, obtained care team eval , normal LFTs and magnesium. 4. Lactic acidosis. Likely due to dehydration, decreased p.o. intake, infection as well as alcohol abuse, patient has received 1.5 L of IV fluid in the ER, lactic acid non normalized. 5. History of polysubstance abuse. history of daily cocaine use, supportive care and CARE team consultation. 6. Deep venous thrombosis prophylaxis. The patient will be placed on Lovenox. 7. Undiagnosed COPD CT chest showed emphysematous changes will place patient on as needed ventolin and breo to help with sob.will need outpt pulm eval.
[2020-03-14 11:29] VITALS: BP 125/72; PULSE 84; RESP 18; TEMP 37; O2SAT 98
[2020-03-14] MEDS: Throat Lozenge, Medicated LOZENGE 1 LOZENGE MUCOUS MEM (13:27)
[2020-03-14] MEDS: Acetaminophen 325 MG TABLET 650 MG PO ×2 (13:27→17:38)
[2020-03-14] MEDS: guaiFENesin DM 200/20/10 ML 10 ML SYRUP PO ×2 (13:27→17:38)
--- NOTE | 2020-03-14 15:01 | MHC.CARE ---
Recovery Support note: Patient is a 45 year old Emirati speaking male who presented to [facility] ED due to flu like symptoms and was medically admitted. Patient was able to engage in consultation however declined interest in discussing his alcohol and cocaine use. This director underwriter sales encouraged patient to strongly consider reducing or stopping use entirely. Patient was agreeable to having resources left for him to review later on. Informed patient that if he would like to discuss his substance use and supports to assist his recovery he could inform his RN and I would return. Discussed consultation with patient's RN, July.
[2020-03-14 16:00] VITALS: BP 115/69; PULSE 87; RESP 20; TEMP 36.7; O2SAT 98
[2020-03-14 19:34] VITALS: BP 116/67; PULSE 91; RESP 20; TEMP 36.9; O2SAT 97
[2020-03-14] MEDS: Enoxaparin Sodium 40 MG/0.4 ML SYRINGE SUBCUT (20:25)
[2020-03-15] VITALS (10 sets, daily range): BP systolic 98–128; BP diastolic 56–78; PULSE 81–102; RESP 16–20; TEMP 36.7–39.4; O2SAT 95–97
[2020-03-15] MEDS: Acetaminophen 325 MG TABLET 650 MG PO (00:22)
--- NOTE | 2020-03-15 02:03 | P.EN_ITS ---
Event Note Date of Service: 03/15/20 Event Note: notified by RN patient is having a rash with redness in his wholeb ashwini which started after tylenol administration. One dose of Benadryl IV to be given now stat as well as motrin for generalized pain. Tylenol discontinued from his med list. Will reassess
[2020-03-15] MEDS: diphenhydrAMINE HCL 50 MG/ML VIAL 25 MG IVPUSH (02:37)
[2020-03-15] MEDS: Ibuprofen 600 MG TABLET PO ×2 (02:37→20:25)
--- NOTE | 2020-03-15 02:59 | PC.NURSE ---
Patient temp was 102.2 , administered Tylenol 650mg, approx 1 hour later patient developed generalized body redness/rash. MD notified. Question if patient is allergic to Acetaminophen, patient stated I am not allergic to tylenol . MD made aware.Tylenol order was D/C. MD ordered Benadryl 25mg IV and Motrin 600mg P.O. Administered Benadryl and Motrin , reassessed patient. Redness improved, fever at 101.2. Will continue to monitor and reassess patient.
[2020-03-15] MEDS: Fluticasone/Vilanterol 100/25 BLST.W.DEV 1 PUFF INHALE (07:51)
[2020-03-15] MEDS: Nicotine 21 MG PATCH.TD24 TRANSDERMA (08:33)
[2020-03-15] MEDS: PHENobarbitaL 15 MG TABLET 45 MG PO ×2 (08:34→20:25)
[2020-03-15] MEDS: 0.9 % Sodium Chloride Flush 3 ML SYRINGE IVFLUSH ×3 (08:34→20:25)
[2020-03-15] MEDS: ondansetron HCL 4 MG/2 ML VIAL IVPUSH (12:21)
--- NOTE | 2020-03-15 13:56 | MHC.PIE ---
1215: P PT TEMP 101.[address] CARBONE NOTIFIED. ICE PACKS APPLIED TO GROIN AND NAPE OF NECK. ZOFRAN IV GIVEN E DR PRESCOTT IN TO SEE PT AND WILL EVALUATE MEDICATIONS 1345 P: TEMP ORALLY 102.[address] PRESCOTT NOTIFIED. AWAITING NEW ORDERS.
[2020-03-15] MEDS: Ketorolac Tromethamine 15 MG/ML VIAL IV (14:35)
[2020-03-15] MEDS: Famotidine/PF 20 MG/2 ML VIAL IVPUSH ×2 (14:36→20:25)
--- NOTE | 2020-03-15 14:42 | PC.NURSE ---
toradol given for increased temp. will monitor
[2020-03-15 15:48] LABS: MANUAL DIFF FLAG NO
[2020-03-15 15:50] LABS: Basophils Percent Auto 0.2 % (0-2); Hematocrit 40.8 % (42-52); Hemoglobin 13.8 g/dl (14.0-18.0); Imm Gran Abs Auto 0.04 X10*3/uL (0.00-0.03); Imm Gran Pct Auto 0.5 % (0.0-0.4); Lymphocytes Absolute Auto 1.3 X10*3/uL (1.2-4.9); Lymphocytes Percent Auto 15.4 % (20-40); Mean Corpuscular HGB Conc 33.8 g/dl (31.0-36.0); Mean Corpuscular Hemoglobin 30.3 pg (27.0-33.0); Mean Corpuscular Volume 89.5 fL (80-98); Mean Platelet Volume 10.7 fL (9.4-12.4); Monocytes Absolute Auto 0.5 X10*3/uL (0.1-1.2); Monocytes Percent Auto 5.5 % (2-11); Neutrophils Absolute Auto 6.5 X10*3/uL (2.0-8.3); Neutrophils Percent Auto 78.4 % (45-73); Platelet Count 185 X10*3/uL (160-400); Red Blood Count 4.56 X10*6/uL (4.60-5.80); Red Cell Distribution Width 12.2 % (11.0-16.0); White Blood Count 8.4 X10*3/uL (4.8-10.8)
[2020-03-15 15:59] LABS: D Dimer 375 NG/ML
[2020-03-15 16:20] LABS: Anion Gap 14 (12-20); Blood Urea Nitrogen 14 mg/dL (9-16); Calcium 7.9 mg/dL (8.4-10.2); Carbon Dioxide 21 mmol/L (22-29); Chloride 101 mmol/L (96-108); Creatinine Clr Calc Pharmacy 99.4; Estimated Glomerular Filt Rate > 60; Glucose Random 95 mg/dL (60-115); Sodium 132 mmol/L (135-145)
--- NOTE | 2020-03-15 17:51 | P.PNIM_ITS ---
Subjective Subjective Date of Service: 03/15/20 Interval History: seen and examined reports nausea without vomiting reports some epigastric discomfort denies any red blood or melena ROS General - no fevers or chills Cardiovascular - no chest pain Respiratory - no shortness of breath or cough Abdominal- nausea/dry heaving, no red blood/melena Physical Exam Vital Signs: Vital Signs: Last Vital Signs Temp 101.3 F H 03/15/20 16:00 Pulse 93 03/15/20 16:00 Resp 20 03/15/20 16:00 BP 116/68 03/15/20 16:00 Pulse Ox 96 03/15/20 16:00 Body Mass Index 28.1 General - dry heaving Cardiovascular - regular rate and rhythm, S1-S2 Lungs - normal respiratory effort, clear to auscultation bilaterally, no wheezing Abdomen - soft, nontender, no rebound regarding Extremities - no edema bilaterally Neuro - awake and alert, no focal deficits Objective Data Current Medications Generic Name Dose Route Start Last Admin Trade Name Freq PRN Reason Stop Dose Admin Albuterol Sulfate 2 puff 03/13/20 17:41 Albuterol Sulfate 90 Mcg 8 Gm Inhaler INHALE RQ4H PRN Shortness of Breath Benzocaine 1 lozenge 03/14/20 10:58 03/14/20 13:27 Throat Lozenge, Medicated Lozenge MUCOUS MEM 1 lozenge Q4H PRN Administration Sore Throat Enoxaparin Sodium 40 mg 03/13/20 22:00 03/14/20 20:25 Enoxaparin Sodium 40 Mg/0.4 Ml Syringe SUBCUT 40 mg Q24H JONAS Administration Famotidine 20 mg 03/15/20 14:30 03/15/20 14:36 Famotidine/Pf 20 Mg/2 Ml Vial IVPUSH 20 mg BID JONAS Administration Fluticasone/Vilanterol 1 puff 03/15/20 08:00 03/15/20 07:51 Fluticasone/Vilanterol 100/25 Blst.W.Dev INHALE 1 puff RDAILY JONAS Administration Guaifenesin/Dextromethorphan 10 ml 03/14/20 10:58 03/14/20 17:38 Guaifenesin Dm 200/20/10 Ml 10 Ml Syrup PO 10 ml Q6H PRN Administration Cough Medication 1 each 03/14/20 09:00 No Benzodiazepines MISCELLANE DAILY JONAS Nicotine 21 mg 03/13/20 17:41 03/15/20 08:33 Nicotine 21 Mg Patch.Td24 TRANSDERMA 21 mg DAILY JONAS Administration Ondansetron HCl 4 mg 03/13/20 17:42 03/15/20 12:21 Ondansetron Hcl 4 Mg/2 Ml Vial IVPUSH 4 mg Q8H PRN Administration Nausea Pharmacy Consult 1 each 03/13/20 17:41 Consult Rx Etoh Phenob Dosing MISCELLANE ONCE PRN Consult order Protocol Phenobarbital 45 mg 03/14/20 09:00 03/15/20 08:34 Phenobarbital 15 Mg Tablet PO 03/15/20 21:01 45 mg BID JONAS Administration Phenobarbital 15 mg 03/16/20 09:00 Phenobarbital 15 Mg Tablet PO 03/17/20 21:01 BID JONAS Phenobarbital 15 mg 03/18/20 09:00 Phenobarbital 15 Mg Tablet PO 03/19/20 09:01 DAILY [facility] Sodium Chloride 3 ml 03/14/20 00:00 03/15/20 16:53 0.9 % Sodium Chloride Flush 3 Ml Syringe IVFLUSH 3 ml QSHIFT JONAS Administration Labs CBC & Chem 7: 03/15/20 15:30 03/15/20 15:30 Microbiology Microbiology Results: Microbiology 03/13/20 13:48 Blood - Venous Blood Culture - Preliminary No growth after 48 hours. 03/13/20 15:17 Blood - Venous Blood Culture - Preliminary Coag negative Staphylococcus Assessment and Plan (1) COVID-19: Status: Acute Assessment and Plan: This is a 45 yo M with a PMH of polysubstance abuse who presents to the hospital with complaints of malaise. 1. COVID 19 causing viral sepsis no hypoxia, but persistant fevers supportive care ID consult hold off steriods apparently developed rash with tylenol -- motirin PRN 2. Alcohol abuse and dependence, possibly some alcoholic gastritis pt minimizing his alcohol intake started on phenobarb per protocol monitor lytes empiric iv pepcid 3. Lactic acidosis resolved with IVF 4. Polysbustance abuse cessation as been strongly advised care consult closer to d/c full code dvt pptox, lovenox
[2020-03-15] MEDS: Enoxaparin Sodium 40 MG/0.4 ML SYRINGE SUBCUT (20:27)
[2020-03-15] MEDS: guaiFENesin DM 200/20/10 ML 10 ML SYRUP PO (20:40)
--- NOTE | 2020-03-16 | XR_ITS ---
EXAMINATION: XR CHEST CLINICAL INFORMATION: Covid positive. COMPARISON: CT chest 03/13/2020 TECHNIQUE: Frontal portable view of the chest was obtained. 4:45 PM FINDINGS: Subtle hazy airspace opacities in the right mid lower lung in the mid peripheral left lung. This corresponds to the airspace disease seen on the CT chest 03/13/2020. No pleural effusion. Cardiac and mediastinal contours are normal. The heart size is normal. No pulmonary vascular congestion. XR/XR chest 1V IMPRESSION: Persistent bilateral airspace opacities similar to prior CT chest 03/13/2020.
[2020-03-16] MEDS: Throat Lozenge, Medicated LOZENGE 1 LOZENGE MUCOUS MEM ×2 (02:22→16:40)
[2020-03-16 04:00] VITALS: BP 115/61; PULSE 90; RESP 16; TEMP 37.4; O2SAT 99
[2020-03-16] MEDS: guaiFENesin DM 200/20/10 ML 10 ML SYRUP PO ×2 (04:37→16:40)
[2020-03-16] MEDS: Ibuprofen 600 MG TABLET PO ×2 (04:37→16:25)
[2020-03-16 07:49] VITALS: BP 103/55; PULSE 88; RESP 20; TEMP 37.2; O2SAT 96
[2020-03-16] MEDS: Fluticasone/Vilanterol 100/25 BLST.W.DEV 1 PUFF INHALE (08:01)
[2020-03-16] MEDS: Nicotine 21 MG PATCH.TD24 TRANSDERMA (08:43)
[2020-03-16] MEDS: 0.9 % Sodium Chloride Flush 3 ML SYRINGE IVFLUSH ×3 (08:44→20:46)
[2020-03-16] MEDS: PHENobarbitaL 15 MG TABLET PO ×2 (08:44→20:46)
[2020-03-16] MEDS: Famotidine/PF 20 MG/2 ML VIAL IVPUSH ×2 (08:44→20:46)
[2020-03-16 09:41] LABS: Hematocrit 39.8 % (42-52); Hemoglobin 13.8 g/dl (14.0-18.0); Mean Corpuscular HGB Conc 34.7 g/dl (31.0-36.0); Mean Corpuscular Hemoglobin 30.5 pg (27.0-33.0); Mean Corpuscular Volume 87.9 fL (80-98); Mean Platelet Volume 10.6 fL (9.4-12.4); Platelet Count 193 X10*3/uL (160-400); Red Blood Count 4.53 X10*6/uL (4.60-5.80); Red Cell Distribution Width 11.9 % (11.0-16.0); White Blood Count 7.1 X10*3/uL (4.8-10.8)
--- NOTE | 2020-03-16 09:46 | MHC.CM.PN ---
DP home no services family transport.
[2020-03-16 10:09] LABS: Anion Gap 11 (12-20); Blood Urea Nitrogen 18 mg/dL (9-16); Calcium 8.1 mg/dL (8.4-10.2); Carbon Dioxide 26 mmol/L (22-29); Chloride 99 mmol/L (96-108); Creatinine Clr Calc Pharmacy 88.4; Estimated Glomerular Filt Rate > 60; Glucose Random 92 mg/dL (60-115); Potassium 3.6 mmol/l (3.3-5.1); Sodium 132 mmol/L (135-145)
[2020-03-16 11:21] VITALS: BP 140/66; PULSE 66; RESP 20; TEMP 37.3; O2SAT 98
[2020-03-16] MEDS: Morphine Sulfate 4 MG/ML CARTRIDGE 3 MG IVPUSH (13:09)
--- NOTE | 2020-03-16 14:11 | PC.NURSE ---
pt c/o feeling like throat is closing up and coughing repeatedly. 02 97% on RA, lung sounds diminished bilaterally as per prior assessment. pt increasingly stating I can't breathe and unable to speak full sentences. rapid response called. md and respiratory at bedside to assess. 02 maintained 95-95% on RA, 2L NC placed for comfort. morphine 3 mg ordered for work of breathing and given with positive effect. pt resting with eyes closed at this time.
[2020-03-16 15:22] VITALS: BP 124/73; PULSE 97; RESP 26; TEMP 36.8; O2SAT 96
--- NOTE | 2020-03-16 16:08 | HO.PM.IMPN ---
Subjective Subjective Date of Service: 03/16/20 Interval History: seen and examined RR called on patient this afternoon. Was noted to have sudden on set of difficulty breathing. Pt seen and examined bedside, denied taking any substance. Denied any pain, just reported sensation of throat closing and not being able to breathe. He was tolerating RA prior to this and was placed on O2 for comfort. Was tachy in the 120. On exam, lungs were clear and no stridor appreciated. No tongue swelling. Patient given dose of morphine and re-evaluated afterwards. Breathing more easily and reported feeling better. ROS General - no fevers or chills Cardiovascular - no chest pain Respiratory - +sob Abdominal- no abdominal pain, nausea, vomiting, diarrhea psych - +anxiety Physical Exam Vital Signs: Vital Signs: Last Vital Signs Temp 101.3 F H 03/15/20 16:00 Pulse 93 03/15/20 16:00 Resp 20 03/15/20 16:00 BP 116/68 03/15/20 16:00 Pulse Ox 96 03/15/20 16:00 Body Mass Index 28.1 General - dry heaving Cardiovascular - regular rate and rhythm, S1-S2 Lungs - normal respiratory effort, clear to auscultation bilaterally, no wheezing Abdomen - soft, nontender, no rebound regarding Extremities - no edema bilaterally Neuro - awake and alert, no focal deficits Const: Other: Last Vital Signs Temp 101.3 F H 03/15/20 16:00 Pulse 93 03/15/20 16:00 Resp 20 03/15/20 16:00 BP 116/68 03/15/20 16:00 Pulse Ox 96 03/15/20 16:00 Body Mass Index 28.1 Cardio: Other: Last Vital Signs Temp 101.3 F H 03/15/20 16:00 Pulse 93 03/15/20 16:00 Resp 20 03/15/20 16:00 BP 116/68 03/15/20 16:00 Pulse Ox 96 03/15/20 16:00 Body Mass Index 28.1 Objective Data Current Medications Generic Name Dose Route Start Last Admin Trade Name Freq PRN Reason Stop Dose Admin Albuterol Sulfate 2 puff 03/13/20 17:41 Albuterol Sulfate 90 Mcg 8 Gm Inhaler INHALE RQ4H PRN Shortness of Breath Benzocaine 1 lozenge 03/14/20 10:58 03/16/20 02:22 Throat Lozenge, Medicated Lozenge MUCOUS MEM 1 lozenge Q4H PRN Administration Sore Throat Enoxaparin Sodium 40 mg 03/13/20 22:00 03/15/20 20:27 Enoxaparin Sodium 40 Mg/0.4 Ml Syringe SUBCUT 40 mg Q24H JONAS Administration Famotidine 20 mg 03/15/20 14:30 03/16/20 08:44 Famotidine/Pf 20 Mg/2 Ml Vial IVPUSH 20 mg BID JONAS Administration Fluticasone/Vilanterol 1 puff 03/15/20 08:00 03/16/20 08:01 Fluticasone/Vilanterol 100/25 Blst.W.Dev INHALE 1 puff RDAILY JONAS Administration Guaifenesin/Dextromethorphan 10 ml 03/14/20 10:58 03/16/20 04:37 Guaifenesin Dm 200/20/10 Ml 10 Ml Syrup PO 10 ml Q6H PRN Administration Cough Hydroxyzine HCl 25 mg 03/16/20 17:00 Hydroxyzine Hcl 25 Mg Tablet PO QID JONAS Ibuprofen 600 mg 03/15/20 17:50 03/16/20 04:37 Ibuprofen 600 Mg Tablet PO 600 mg Q6H PRN Administration Fever Medication 1 each 03/14/20 09:00 No Benzodiazepines MISCELLANE DAILY JONAS Nicotine 21 mg 03/13/20 17:41 03/16/20 08:43 Nicotine 21 Mg Patch.Td24 TRANSDERMA 21 mg DAILY JONAS Administration Ondansetron HCl 4 mg 03/13/20 17:42 03/15/20 12:21 Ondansetron Hcl 4 Mg/2 Ml Vial IVPUSH 4 mg Q8H PRN Administration Nausea Pharmacy Consult 1 each 03/13/20 17:41 Consult Rx Etoh Phenob Dosing MISCELLANE ONCE PRN Consult order Protocol Phenobarbital 15 mg 03/16/20 09:00 03/16/20 08:44 Phenobarbital 15 Mg Tablet PO 03/17/20 21:01 15 mg BID JONAS Administration Phenobarbital 15 mg 03/18/20 09:00 Phenobarbital 15 Mg Tablet PO 03/19/20 09:01 DAILY JONAS Sodium Chloride 3 ml 03/14/20 00:00 03/16/20 08:44 0.9 % Sodium Chloride Flush 3 Ml Syringe IVFLUSH 3 ml QSHIFT JONAS Administration Labs CBC & Chem 7: 03/16/20 09:19 03/16/20 09:19 Microbiology Microbiology Results: Microbiology 03/13/20 13:48 Blood - Venous Blood Culture - Preliminary No growth after 48 hours. 03/13/20 15:17 Blood - Venous Blood Culture - Preliminary Coag negative Staphylococcus Assessment and Plan (1) COVID-19: Status: Acute Assessment and Plan: This is a 45 yo M with a PMH of polysubstance abuse who presents to the hospital with complaints of malaise. 1. COVID 19 causing viral sepsis no hypoxia, last fever yesterday evening supportive care ID consult pending apparently developed rash with tylenol -- Motrin PRN repeta cxr 2. Alcohol abuse and dependence, possibly some alcoholic gastritis pt minimizing his alcohol intake started on phenobarb per protocol monitor lytes empiric iv pepcid given schduled atarax 3. Lactic acidosis resolved with IVF 4. Polysbustance abuse cessation as been strongly advised care consult closer to d/c 5. Anxiety / panic attacks atarax PRN, may need to use benzos if persists full code dvt pptox, lovenox
[2020-03-16] MEDS: hydrOXYzine HCL 25 MG TABLET PO ×2 (16:25→20:46)
--- NOTE | 2020-03-16 16:25 | W.PM.IDCN ---
History of Present Illness Data of Consult Service Date: 03/16/20 Primary Care Provider: None Physician HPI Reason for consult: He presents with shortness of breath cough and fever for two days He has cough as well COVID positive PMFSH Past Medical History Medical History (Updated 03/16/20 @ 16:27 by Melany Malcolm MD) Alcohol abuse Bipolar disorder Cocaine abuse Current every day smoker Mood disorder Social History Social History Household Members: Other Housing: House Do you presently have visiting nurse or other home services: No Smoking Status: Current every day smoker Tobacco Type: Cigarette Cigarettes Per Day: 20 Smoked in Last 30 Days: No Patient Interested in Nicotine Replacement: Yes Patient Given Instructions on How to Stop Smoking: Yes Date Education Initiated: 03/13/20 Second Hand Smoke Exposure: No Use of substances other than those prescribed or required for medical reasons: Yes Substance Use Type: Crack/Cocaine Substance Use Frequency: Occasionally Last Used Substance: Days (ago) Last Used Substance Other:: 2 Currently Displaying Signs/Symptoms of Drug Intoxication Withdrawal: No Any prior treatment program specific to substance use: No Have you been hit, kicked, punched, or otherwise hurt by someone within the past year? If so, by whom?: No Do you feel safe in your current relationship?: No Current Relationship Is there a partner from a previous relationship who is making you feel unsafe now?: No Are you made to feel afraid or neglected: No Advance Directives: No Advance Directives Information Provided: Yes Advance Directives on File: No Do you have thoughts of harming others: None Do you have a plan to hurt others: No Plan Recently lost weight without trying: No service: No Current occupational status: unemployed Meds Allergies Allergy/AdvReac Type Severity Reaction Status Date / Time acetaminophen [From PERCOCET] AdvReac Unknown Rash Verified 03/15/20 12:44 oxycodone [From PERCOCET] AdvReac Unknown NAUSEA & Verified 03/15/20 12:39 VOMITING Home Medications Medication Instructions Recorded Confirmed Type No Known Home Meds 03/13/20 03/13/20 History Physical Exam Vital Signs: Vital Signs: Last Vital Signs Temp 98.3 F 03/16/20 15:22 Pulse 97 03/16/20 15:22 Resp 26 H 03/16/20 15:22 BP 124/73 03/16/20 15:22 Pulse Ox 96 03/16/20 15:22 Body Mass Index 28.1 Const: General: cooperative HENMT: Head: Yes normal to inspection Resp: Effort & Inspection: normal respiratory effort Cardio: Rate: regular rate Rhythm: regular rhythm GI: Inspection: Yes normal to inspection Extrem: General: Yes normal to inspection Assessment and Plan (1) COVID-19: Problem details: He has anxiety He has no oxygen requirements at this time Status: Acute Supportive care with oxygen only (2) Cocaine abuse: Status: Acute (3) Alcohol dependence: Status: Acute Results Labs CBC & Chem 7: 03/16/20 09:19 03/16/20 09:19 Labs: Short CBC 03/16/20 Range/Units 09:19 WBC 7.1 (4.8-10.8) X10*3/uL Hgb 13.8 L (14.0-18.0) g/dl Hct 39.8 L (42-52) % Plt Count 193 (160-400) X10*3/uL BMP 03/16/20 09:19 Sodium 132 L Potassium 3.6 Chloride 99 Carbon Dioxide 26 BUN 18 H Creatinine 1.09 Calcium 8.1 L Microbiology Microbiology Results: Microbiology 03/13/20 13:48 Blood - Venous Blood Culture - Preliminary No growth after 48 hours. 03/13/20 15:17 Blood - Venous Blood Culture - Preliminary Coag negative Staphylococcus
[2020-03-16 19:26] VITALS: BP 102/62; PULSE 76; RESP 18; TEMP 36.7; O2SAT 96
[2020-03-17] VITALS (7 sets, daily range): BP systolic 105–140; BP diastolic 56–80; PULSE 64–85; RESP 17–26; TEMP 35.7–36.7; O2SAT 91–99
[2020-03-17] MEDS: Throat Lozenge, Medicated LOZENGE 1 LOZENGE MUCOUS MEM (01:31)
[2020-03-17] MEDS: guaiFENesin DM 200/20/10 ML 10 ML SYRUP PO ×2 (01:31→16:16)
[2020-03-17] MEDS: Ibuprofen 600 MG TABLET PO ×2 (03:53→16:16)
[2020-03-17] MEDS: ondansetron HCL 4 MG/2 ML VIAL IVPUSH (03:53)
[2020-03-17 07:00] LABS: Hematocrit 42.2 % (42-52); Hemoglobin 14.6 g/dl (14.0-18.0); Mean Corpuscular HGB Conc 34.6 g/dl (31.0-36.0); Mean Corpuscular Hemoglobin 30.1 pg (27.0-33.0); Mean Platelet Volume 10.6 fL (9.4-12.4); Platelet Count 218 X10*3/uL (160-400); Red Blood Count 4.85 X10*6/uL (4.60-5.80); Red Cell Distribution Width 11.9 % (11.0-16.0); White Blood Count 5.6 X10*3/uL (4.8-10.8)
[2020-03-17 07:14] LABS: D Dimer 529 NG/ML
[2020-03-17 07:38] LABS: Procalcitonin 0.14 ng/mL
[2020-03-17 07:39] LABS: Anion Gap 14 (12-20); Blood Urea Nitrogen 17 mg/dL (9-16); Calcium 7.8 mg/dL (8.4-10.2); Carbon Dioxide 21 mmol/L (22-29); Chloride 101 mmol/L (96-108); Creatinine Clr Calc Pharmacy 83.8; Estimated Glomerular Filt Rate > 60; Glucose Random 163 mg/dL (60-115); Potassium 3.8 mmol/l (3.3-5.1); Sodium 132 mmol/L (135-145)
[2020-03-17] MEDS: 0.9 % Sodium Chloride Flush 3 ML SYRINGE IVFLUSH ×2 (07:56→15:03)
[2020-03-17] MEDS: Famotidine/PF 20 MG/2 ML VIAL IVPUSH ×2 (07:56→21:39)
[2020-03-17] MEDS: Nicotine 21 MG PATCH.TD24 TRANSDERMA (07:56)
[2020-03-17] MEDS: PHENobarbitaL 15 MG TABLET PO ×2 (07:56→21:38)
[2020-03-17] MEDS: hydrOXYzine HCL 25 MG TABLET PO ×4 (07:56→21:37)
[2020-03-17] MEDS: Fluticasone/Vilanterol 100/25 BLST.W.DEV 1 PUFF INHALE (07:59)
--- NOTE | 2020-03-17 17:17 | HO.PM.IMPN ---
Subjective Subjective Date of Service: 03/17/20 Interval History: seen and examined feeling less anxious ROS General - no fevers or chills Cardiovascular - no chest pain Respiratory - +sob Abdominal- no abdominal pain, nausea, vomiting, diarrhea psych - +anxiety Physical Exam Vital Signs: Vital Signs: Last Vital Signs Temp 101.3 F H 03/15/20 16:00 Pulse 93 03/15/20 16:00 Resp 20 03/15/20 16:00 BP 116/68 03/15/20 16:00 Pulse Ox 96 03/15/20 16:00 Body Mass Index 28.1 General - no distress, comfortable Cardiovascular - regular rate and rhythm, S1-S2 Lungs - normal respiratory effort, clear to auscultation bilaterally, no wheezing Abdomen - soft, nontender, no rebound regarding Extremities - no edema bilaterally Neuro - awake and alert, no focal deficits Objective Data Current Medications Generic Name Dose Route Start Last Admin Trade Name Freq PRN Reason Stop Dose Admin Albuterol Sulfate 2 puff 03/13/20 17:41 Albuterol Sulfate 90 Mcg 8 Gm Inhaler INHALE RQ4H PRN Shortness of Breath Benzocaine 1 lozenge 03/14/20 10:58 03/17/20 01:31 Throat Lozenge, Medicated Lozenge MUCOUS MEM 1 lozenge Q4H PRN Administration Sore Throat Enoxaparin Sodium 40 mg 03/13/20 22:00 03/16/20 20:59 Enoxaparin Sodium 40 Mg/0.4 Ml Syringe SUBCUT Not Given Q24H JONAS Famotidine 20 mg 03/15/20 14:30 03/17/20 07:56 Famotidine/Pf 20 Mg/2 Ml Vial IVPUSH 20 mg BID JONAS Administration Fluticasone/Vilanterol 1 puff 03/15/20 08:00 03/17/20 07:59 Fluticasone/Vilanterol 100/25 Blst.W.Dev INHALE 1 puff RDAILY JONAS Administration Guaifenesin/Dextromethorphan 10 ml 03/14/20 10:58 03/17/20 16:16 Guaifenesin Dm 200/20/10 Ml 10 Ml Syrup PO 10 ml Q6H PRN Administration Cough Hydroxyzine HCl 25 mg 03/16/20 17:00 03/17/20 16:16 Hydroxyzine Hcl 25 Mg Tablet PO 25 mg QID JONAS Administration Ibuprofen 600 mg 03/15/20 17:50 03/17/20 16:16 Ibuprofen 600 Mg Tablet PO 600 mg Q6H PRN Administration Fever Medication 1 each 03/14/20 09:00 No Benzodiazepines MISCELLANE DAILY JONAS Nicotine 21 mg 03/13/20 17:41 03/17/20 07:56 Nicotine 21 Mg Patch.Td24 TRANSDERMA 21 mg DAILY JONAS Administration Ondansetron HCl 4 mg 03/13/20 17:42 03/17/20 03:53 Ondansetron Hcl 4 Mg/2 Ml Vial IVPUSH 4 mg Q8H PRN Administration Nausea Phenobarbital 15 mg 03/16/20 09:00 03/17/20 07:56 Phenobarbital 15 Mg Tablet PO 03/17/20 21:01 15 mg BID JONAS Administration Phenobarbital 15 mg 03/18/20 09:00 Phenobarbital 15 Mg Tablet PO 03/19/20 09:01 DAILY JONAS Sodium Chloride 3 ml 03/14/20 00:00 03/17/20 15:03 0.9 % Sodium Chloride Flush 3 Ml Syringe IVFLUSH 3 ml QSHIFT JONAS Administration Labs CBC & Chem 7: 03/17/20 06:03 03/17/20 06:03 Microbiology Microbiology Results: Microbiology 03/13/20 13:48 Blood - Venous Blood Culture - Preliminary No growth after 48 hours. 03/13/20 15:17 Blood - Venous Blood Culture - Preliminary Coag negative Staphylococcus Assessment and Plan (1) COVID-19: Problem details: He has anxiety He has no oxygen requirements at this time Status: Acute Assessment and Plan: This is a 45 yo M with a PMH of polysubstance abuse who presents to the hospital with complaints of malaise. 1. COVID 19 causing viral sepsis no hypoxia, a febrile about 48 hours supportive care ID consult pending apparently developed rash with tylenol -- Motrin PRN repeat cxr stable 2. Alcohol abuse and dependence, possibly some alcoholic gastritis pt minimizing his alcohol intake started on phenobarb per protocol monitor lytes empiric iv pepcid given schduled atarax 3. Lactic acidosis resolved with IVF 4. Polysbustance abuse cessation as been strongly advised care consult closer to d/c 5. Anxiety / panic attacks improved with atarax, continue full code dvt pptox, lovenox
[2020-03-17] MEDS: Enoxaparin Sodium 40 MG/0.4 ML SYRINGE SUBCUT (21:38)
[2020-03-18] MEDS: 0.9 % Sodium Chloride Flush 3 ML SYRINGE IVFLUSH ×4 (00:15→23:57)
[2020-03-18] MEDS: Ibuprofen 600 MG TABLET PO (03:00)
[2020-03-18] MEDS: Throat Lozenge, Medicated LOZENGE 1 LOZENGE MUCOUS MEM (03:11)
[2020-03-18] MEDS: guaiFENesin DM 200/20/10 ML 10 ML SYRUP PO (03:11)
[2020-03-18 03:58] VITALS: BP 130/69; PULSE 75; RESP 18; TEMP 36.9; O2SAT 96
[2020-03-18] MEDS: ondansetron HCL 4 MG/2 ML VIAL IVPUSH ×2 (04:16→10:14)
[2020-03-18 06:16] LABS: Hemoglobin 14.2 g/dl (14.0-18.0); Mean Corpuscular HGB Conc 34.6 g/dl (31.0-36.0); Mean Corpuscular Hemoglobin 30.1 pg (27.0-33.0); Mean Platelet Volume 10.5 fL (9.4-12.4); Platelet Count 273 X10*3/uL (160-400); Red Blood Count 4.71 X10*6/uL (4.60-5.80); Red Cell Distribution Width 12.1 % (11.0-16.0); White Blood Count 6.1 X10*3/uL (4.8-10.8)
[2020-03-18 06:42] LABS: Anion Gap 11 (12-20); Blood Urea Nitrogen 15 mg/dL (9-16); Calcium 8.1 mg/dL (8.4-10.2); Carbon Dioxide 27 mmol/L (22-29); Chloride 103 mmol/L (96-108); Creatinine Clr Calc Pharmacy 101.5; Estimated Glomerular Filt Rate > 60; Glucose Random 90 mg/dL (60-115); Potassium 4.3 mmol/l (3.3-5.1); Sodium 137 mmol/L (135-145)
[2020-03-18 06:48] LABS: D Dimer 361 NG/ML
[2020-03-18 06:58] LABS: Procalcitonin 0.09 ng/mL
[2020-03-18 07:50] VITALS: BP 100/71; PULSE 69; RESP 17; TEMP 36.2; O2SAT 99
[2020-03-18] MEDS: Fluticasone/Vilanterol 100/25 BLST.W.DEV 1 PUFF INHALE (08:13)
[2020-03-18] MEDS: Famotidine/PF 20 MG/2 ML VIAL IVPUSH ×2 (10:12→21:26)
--- NOTE | 2020-03-18 10:13 | MHC.CM.PN ---
Male 45 DX +COVID DP Pt will be seen closer to DC by [facility]. He will DC to home no services family transport. CM will follow.
[2020-03-18] MEDS: PHENobarbitaL 15 MG TABLET PO (10:15)
[2020-03-18] MEDS: Nicotine 21 MG PATCH.TD24 TRANSDERMA (10:15)
[2020-03-18] MEDS: hydrOXYzine HCL 25 MG TABLET PO ×3 (10:15→21:25)
[2020-03-18] MEDS: polyethylene glycoL 3350 17 GM POWD.PACK PO (10:16)
--- NOTE | 2020-03-18 10:19 | PC.NURSE ---
Pt c/o nausea and vomiting with heartburn as well as constipation. Pt given scheduled pepcid, a one time dose of mirilax, and a PRN zofran.
[2020-03-18 11:26] VITALS: BP 113/79; PULSE 74; RESP 18; TEMP 36.1; O2SAT 99
[2020-03-18 13:27] LABS: CRP High Sensitivity >10.0 mg/L
--- NOTE | 2020-03-18 15:10 | HO.PM.IMPN ---
Subjective Subjective Date of Service: 03/18/20 Interval History: seen and examined feeling less anxious no new complaints ROS General - no fevers or chills Cardiovascular - no chest pain Respiratory - +sob Abdominal- no abdominal pain, nausea, vomiting, diarrhea psych - +anxiety Physical Exam Vital Signs: General - no distress, comfortable Cardiovascular - regular rate and rhythm, S1-S2 Lungs - normal respiratory effort, clear to auscultation bilaterally, no wheezing Abdomen - soft, nontender, no rebound regarding Extremities - no edema bilaterally Neuro - awake and alert, no focal deficits Objective Data Current Medications Generic Name Dose Route Start Last Admin Trade Name Freq PRN Reason Stop Dose Admin Albuterol Sulfate 2 puff 03/13/20 17:41 Albuterol Sulfate 90 Mcg 8 Gm Inhaler INHALE RQ4H PRN Shortness of Breath Benzocaine 1 lozenge 03/14/20 10:58 03/18/20 03:11 Throat Lozenge, Medicated Lozenge MUCOUS MEM 1 lozenge Q4H PRN Administration Sore Throat Enoxaparin Sodium 40 mg 03/13/20 22:00 03/17/20 21:38 Enoxaparin Sodium 40 Mg/0.4 Ml Syringe SUBCUT 40 mg Q24H JONAS Administration Famotidine 20 mg 03/15/20 14:30 03/18/20 10:12 Famotidine/Pf 20 Mg/2 Ml Vial IVPUSH 20 mg BID JONAS Administration Fluticasone/Vilanterol 1 puff 03/15/20 08:00 03/18/20 09:38 Fluticasone/Vilanterol 100/25 Blst.W.Dev INHALE Not Given RDAILY JONAS Guaifenesin/Dextromethorphan 10 ml 03/14/20 10:58 03/18/20 03:11 Guaifenesin Dm 200/20/10 Ml 10 Ml Syrup PO 10 ml Q6H PRN Administration Cough Hydroxyzine HCl 25 mg 03/16/20 17:00 03/18/20 13:52 Hydroxyzine Hcl 25 Mg Tablet PO 25 mg QID JONAS Administration Ibuprofen 600 mg 03/15/20 17:50 03/18/20 03:00 Ibuprofen 600 Mg Tablet PO 600 mg Q6H PRN Administration Fever Medication 1 each 03/14/20 09:00 No Benzodiazepines MISCELLANE DAILY JONAS Morphine Sulfate 3 mg 03/17/20 17:18 Morphine Sulfate 4 Mg/Ml Cartridge IVPUSH Q4H PRN respiratory distress Nicotine 21 mg 03/13/20 17:41 03/18/20 10:15 Nicotine 21 Mg Patch.Td24 TRANSDERMA 21 mg DAILY JONAS Administration Ondansetron HCl 4 mg 03/13/20 17:42 03/18/20 10:14 Ondansetron Hcl 4 Mg/2 Ml Vial IVPUSH 4 mg Q8H PRN Administration Nausea Phenobarbital 15 mg 03/18/20 09:00 03/18/20 10:15 Phenobarbital 15 Mg Tablet PO 03/19/20 09:01 15 mg DAILY JONAS Administration Sodium Chloride 3 ml 03/14/20 00:00 03/18/20 10:12 0.9 % Sodium Chloride Flush 3 Ml Syringe IVFLUSH 3 ml QSHIFT JONAS Administration Labs CBC & Chem 7: 03/18/20 05:41 03/18/20 05:41 Microbiology Microbiology Results: Microbiology 03/13/20 13:48 Blood - Venous Blood Culture - Preliminary No growth after 48 hours. 03/13/20 15:17 Blood - Venous Blood Culture - Preliminary Coag negative Staphylococcus Assessment and Plan (1) COVID-19: Status: Acute Assessment and Plan: This is a 45 yo M with a PMH of polysubstance abuse who presents to the hospital with complaints of malaise. 1. COVID 19 causing viral sepsis no hypoxia, a febrile about 72 hours supportive care ID input appreicated apparently developed rash with tylenol -- Motrin PRN repeat cxr stable 2. Alcohol abuse and dependence, possibly some alcoholic gastritis improving pt minimizing his alcohol intake started on phenobarb per protocol monitor lytes empiric iv pepcid given schduled atarax 3. Lactic acidosis resolved with IVF 4. Polysbustance abuse cessation as been strongly advised care consult closer to d/c 5. Anxiety / panic attacks improved with atarax, continue full code dvt pptox, lovenox
--- NOTE | 2020-03-18 15:25 | PC.NURSE ---
Pt pulled IV out earlier because it was bothering him. New IV was placd to right hand. Pt has displayed attention seeking behaviors this shift but is currently calm and cooperative in bed with eyes closed. VSS. Pt remains on room air.
[2020-03-18 15:44] VITALS: BP 117/74; PULSE 62; RESP 18; TEMP 36.2; O2SAT 96
[2020-03-18 20:00] VITALS: BP 100/64; PULSE 60; RESP 17; TEMP 36.1; O2SAT 96
[2020-03-18] MEDS: Enoxaparin Sodium 40 MG/0.4 ML SYRINGE SUBCUT (21:25)
[2020-03-18 23:31] VITALS: BP 110/73; PULSE 70; RESP 19; TEMP 36.2; O2SAT 99
[2020-03-19 03:09] VITALS: BP 113/74; PULSE 65; RESP 19; TEMP 35.9; O2SAT 98
[2020-03-19 07:43] LABS: Hematocrit 42.8 % (42-52); Hemoglobin 14.7 g/dl (14.0-18.0); Mean Corpuscular HGB Conc 34.3 g/dl (31.0-36.0); Mean Corpuscular Hemoglobin 30.2 pg (27.0-33.0); Mean Corpuscular Volume 87.9 fL (80-98); Mean Platelet Volume 10.5 fL (9.4-12.4); Platelet Count 342 X10*3/uL (160-400); Red Blood Count 4.87 X10*6/uL (4.60-5.80); Red Cell Distribution Width 12.1 % (11.0-16.0); White Blood Count 6.1 X10*3/uL (4.8-10.8)
[2020-03-19 08:00] VITALS: BP 114/74; PULSE 71; RESP 22; TEMP 36.7; O2SAT 98
[2020-03-19 08:05] LABS: Anion Gap 12 (12-20); Blood Urea Nitrogen 14 mg/dL (9-16); Calcium 8.5 mg/dL (8.4-10.2); Carbon Dioxide 27 mmol/L (22-29); Chloride 103 mmol/L (96-108); Creatinine Clr Calc Pharmacy 99.4; Estimated Glomerular Filt Rate > 60; Glucose Random 81 mg/dL (60-115); Potassium 4.3 mmol/l (3.3-5.1); Sodium 138 mmol/L (135-145)
[2020-03-19] MEDS: guaiFENesin DM 200/20/10 ML 10 ML SYRUP PO ×2 (08:31→15:52)
[2020-03-19] MEDS: PHENobarbitaL 15 MG TABLET PO (08:32)
[2020-03-19] MEDS: Ibuprofen 600 MG TABLET PO ×3 (08:32→21:26)
[2020-03-19] MEDS: 0.9 % Sodium Chloride Flush 3 ML SYRINGE IVFLUSH ×2 (08:33→15:52)
[2020-03-19] MEDS: Famotidine/PF 20 MG/2 ML VIAL IVPUSH ×2 (08:33→21:23)
[2020-03-19] MEDS: Nicotine 21 MG PATCH.TD24 TRANSDERMA (08:33)
[2020-03-19] MEDS: hydrOXYzine HCL 25 MG TABLET PO ×4 (08:33→21:23)
[2020-03-19] MEDS: Throat Lozenge, Medicated LOZENGE 1 LOZENGE MUCOUS MEM ×2 (08:33→15:51)
[2020-03-19 08:55] LABS: C Reactive Protein 3.18 mg/dL (< or = 0.50); Lactate Dehydrogenase 293 U/L (118-273)
[2020-03-19 12:00] VITALS: BP 115/71; PULSE 64; RESP 20; TEMP 36.6; O2SAT 95
[2020-03-19] MEDS: Lactulose 20 GM/30 ML SOLUTION PO ×2 (13:04→15:55)
--- NOTE | 2020-03-19 13:31 | MHC.CM.PN ---
PT WILL DC TODAY WIITH NO SERVICES.
--- NOTE | 2020-03-19 14:19 | PC.NURSE ---
1200 PATIENT REPORTS THAT HE FELT VERY DIZZY WHILE AMBULATING TO THE BATHROOM. PATIENT WAS ABLE TO MAINTAIN 02 SAT OF 96% WHILE AMBULATED IN HIS ROOM. PATIENT STATES THAT HE DOES NOT FELL COMFORTABLE GOING HOME HE HAS NOT HAVE A BM AND HIS STOMACH IS BOTHERING HIM.HOSPITALIST MADE AWARE.
--- NOTE | 2020-03-19 15:09 | HO.PM.IMPN ---
Subjective Subjective Date of Service: 03/19/20 Interval History: seen and examined this AM had a long conversation with him about discharge and he was agreeable stated he could finally breath easier and that he was looking forward to going home but later became dizzy and complained of constipation ROS General - no fevers or chills Cardiovascular - no chest pain Respiratory - sob improved, some khalil Abdominal- no abdominal pain, nausea, vomiting, diarrhea psych - +anxiety Physical Exam Vital Signs: Vital Signs: Last Vital Signs Temp 97.9 F 03/19/20 12:00 Pulse 64 03/19/20 12:00 Resp 20 03/19/20 12:00 BP 115/71 03/19/20 12:00 Pulse Ox 95 03/19/20 12:00 Body Mass Index 28.1 General - no distress, comfortable Cardiovascular - regular rate and rhythm, S1-S2 Lungs - normal respiratory effort, clear to auscultation bilaterally, no wheezing Abdomen - soft, nontender, no rebound regarding Extremities - no edema bilaterally Neuro - awake and alert, no focal deficits Objective Data Current Medications Generic Name Dose Route Start Last Admin Trade Name Freq PRN Reason Stop Dose Admin Albuterol Sulfate 2 puff 03/13/20 17:41 Albuterol Sulfate 90 Mcg 8 Gm Inhaler INHALE RQ4H PRN Shortness of Breath Benzocaine 1 lozenge 03/14/20 10:58 03/19/20 08:33 Throat Lozenge, Medicated Lozenge MUCOUS MEM 1 lozenge Q4H PRN Administration Sore Throat Enoxaparin Sodium 40 mg 03/13/20 22:00 03/18/20 21:25 Enoxaparin Sodium 40 Mg/0.4 Ml Syringe SUBCUT 40 mg Q24H JONAS Administration Famotidine 20 mg 03/15/20 14:30 03/19/20 08:33 Famotidine/Pf 20 Mg/2 Ml Vial IVPUSH 20 mg BID JONAS Administration Fluticasone/Vilanterol 1 puff 03/15/20 08:00 03/19/20 07:45 Fluticasone/Vilanterol 100/25 Blst.W.Dev INHALE Not Given RDAILY JONAS Guaifenesin/Dextromethorphan 10 ml 03/14/20 10:58 03/19/20 08:31 Guaifenesin Dm 200/20/10 Ml 10 Ml Syrup PO 10 ml Q6H PRN Administration Cough Hydroxyzine HCl 25 mg 03/16/20 17:00 03/19/20 12:50 Hydroxyzine Hcl 25 Mg Tablet PO 25 mg QID JONAS Administration Ibuprofen 600 mg 03/15/20 17:50 03/19/20 08:32 Ibuprofen 600 Mg Tablet PO 600 mg Q6H PRN Administration Fever Lactulose 20 gm 03/19/20 15:07 Lactulose 20 Gm/30 Ml Solution PO 03/19/20 15:08 ONCE ONE Medication 1 each 03/14/20 09:00 No Benzodiazepines MISCELLANE DAILY JONAS Morphine Sulfate 3 mg 03/17/20 17:18 Morphine Sulfate 4 Mg/Ml Cartridge IVPUSH Q4H PRN respiratory distress Nicotine 21 mg 03/13/20 17:41 03/19/20 08:33 Nicotine 21 Mg Patch.Td24 TRANSDERMA 21 mg DAILY JONAS Administration Ondansetron HCl 4 mg 03/13/20 17:42 03/18/20 10:14 Ondansetron Hcl 4 Mg/2 Ml Vial IVPUSH 4 mg Q8H PRN Administration Nausea Sodium Chloride 3 ml 03/14/20 00:00 03/19/20 08:33 0.9 % Sodium Chloride Flush 3 Ml Syringe IVFLUSH 3 ml QSHIFT JONAS Administration Labs CBC & Chem 7: 03/19/20 07:02 03/19/20 07:02 Microbiology Microbiology Results: Microbiology 03/13/20 15:17 Blood - Venous Blood Culture - Final Coag negative Staphylococcus 03/13/20 13:48 Blood - Venous Blood Culture - Final No growth after 5 days. Assessment and Plan (1) COVID-19: Status: Acute Assessment and Plan: This is a 45 yo M with a PMH of polysubstance abuse who presents to the hospital with complaints of malaise. 1. COVID 19 causing viral sepsis sepsis resolved no hypoxia no fever ID input appreciated ready for d/c but patient a bit anxious -- reassured. will watch over night and d/c tomorrow 2. Alcohol abuse and dependence, possibly some alcoholic gastritis improving pt minimizing his alcohol intake started on phenobarb per protocol monitor lytes empiric iv pepcid given schduled atarax 3. Lactic acidosis resolved 4. Polysbustance abuse cessation as been strongly advised seen by care team 5. Anxiety / panic attacks atarax full code dvt pptox, lovenox dispo: home tomorrow
[2020-03-19 15:22] VITALS: BP 122/76; PULSE 70; RESP 20; TEMP 36.5; O2SAT 98
--- NOTE | 2020-03-19 17:43 | PC.NURSE ---
PER HOSPITALIST VERBAL ORDER,PATIENT'S DISCHARGE TO BE ON HOLD UNTIL TOMORROW.
[2020-03-19 19:41] VITALS: BP 114/66; PULSE 69; RESP 19; TEMP 36.6; O2SAT 96
[2020-03-19] MEDS: Enoxaparin Sodium 40 MG/0.4 ML SYRINGE SUBCUT (21:23)
[2020-03-19 23:20] VITALS: BP 111/72; PULSE 55; RESP 19; TEMP 36; O2SAT 99
[2020-03-20] MEDS: 0.9 % Sodium Chloride Flush 3 ML SYRINGE IVFLUSH ×2 (00:19→07:48)
[2020-03-20 03:15] VITALS: BP 118/65; PULSE 57; RESP 19; TEMP 36.2; O2SAT 98
[2020-03-20] MEDS: Ibuprofen 600 MG TABLET PO (03:46)
[2020-03-20 06:44] LABS: Hematocrit 40.7 % (42-52); Hemoglobin 13.9 g/dl (14.0-18.0); Mean Corpuscular HGB Conc 34.2 g/dl (31.0-36.0); Mean Corpuscular Hemoglobin 30.1 pg (27.0-33.0); Mean Corpuscular Volume 88.1 fL (80-98); Mean Platelet Volume 10.2 fL (9.4-12.4); Platelet Count 338 X10*3/uL (160-400); Red Blood Count 4.62 X10*6/uL (4.60-5.80); Red Cell Distribution Width 12.2 % (11.0-16.0); White Blood Count 6.8 X10*3/uL (4.8-10.8)
[2020-03-20 07:01] LABS: Anion Gap 12 (12-20); Blood Urea Nitrogen 15 mg/dL (9-16); Calcium 8.1 mg/dL (8.4-10.2); Carbon Dioxide 25 mmol/L (22-29); Chloride 105 mmol/L (96-108); Creatinine Clr Calc Pharmacy 103.6; Estimated Glomerular Filt Rate > 60; Glucose Random 89 mg/dL (60-115); Sodium 138 mmol/L (135-145)
[2020-03-20] MEDS: Throat Lozenge, Medicated LOZENGE 1 LOZENGE MUCOUS MEM (07:47)
[2020-03-20] MEDS: Nicotine 21 MG PATCH.TD24 TRANSDERMA (07:47)
[2020-03-20] MEDS: guaiFENesin DM 200/20/10 ML 10 ML SYRUP PO (07:47)
[2020-03-20] MEDS: hydrOXYzine HCL 25 MG TABLET PO (07:48)
[2020-03-20] MEDS: Famotidine/PF 20 MG/2 ML VIAL IVPUSH (07:48)
[2020-03-20 08:00] VITALS: BP 129/82; PULSE 64; RESP 20; TEMP 36.4; O2SAT 97
--- NOTE | 2020-03-20 09:22 | MHC.CM.PN ---
Per MD pts DC on 03/19/20 was held. Pt discharged today, home with no services
--- NOTE | 2020-03-20 14:37 | P.DS_ITS ---
DS: Providers Provider Date of admission: 03/13/20 17:41 Primary care physician: None Physician Consults: ID and Care team DS: Diagnosis Discharge Diagnosis (1) COVID-19: Status: Acute (2) Alcohol dependence: Status: Acute (3) Lactic acid acidosis: Status: Acute (4) Viral sepsis: Status: Acute (5) Cocaine abuse: Status: Acute DS: Medications Discharge Medications Home Medications: Previous Rx's Medication Instructions Recorded nicotine [Nicoderm CQ] 1 patch TRANSDERMAL DAILY #14 ea 03/19/20 hydroxyzine HCl 25 mg PO BID PRN #30 tab 03/20/20 DS: Summary Hospital Course Hospital Course: From the admission H&P: HISTORY OF PRESENTING ILLNESS: This is a 45-year-old gentleman with past medical history significant for mood disorder, bipolar disorder, chronic cocaine abuse, history of active tobacco use, who presented to [facility] with 3-day history of generally not feeling well with worsening generalized weakness, subjective fevers, and body aches, dry cough, and shortness of breath. The patient has chronic neck pain. He denies any sick contacts. He lives alone. He denies any recent history of travel. He denies nausea, vomiting, or diarrhea. He did not check his fevers. On arrival to the emergency room, the patient was noted to be tachypneic, tachycardic with a pulse of 122, blood pressure was stable at 142/78, finger oximetry was 97% on room air. The patient underwent extensive testing in the emergency room since his COVID-19 test came back positive. His lactic acid is elevated at 2.8, ferritin is 337. D-dimer 369. The patient underwent a CTA chest that showed no significant evidence of PE in the major arteries. There is bibasilar airspace disease and left upper lobe disease as well as emphysematous changes. The patient treated in the emergency room with IV fluids and Ativan. At the present time, the patient appears very anxious with significant tremors most pronounced in the right upper extremity, which according to the patient chronic. Hospital Course: patient was admitted to isolation and was started on supportive treatment for COVID-19 pneumonia which included cough meds and MDI. next methadone was not initiated nor was it required as the patient did not have hypoxia in the hospital. Infectious Disease was consulted and in agreement with supportive care only. Due to his heavy alcohol abuse, he was at risk for alcohol withdrawal and was treated with phenobarbital per protocol. Alcohol cessation was advised. Patient's hospital course was complicated by severe anxiety and panic attacks. He was treated with Atarax And was seen by the care team and the appropriate resources were provided. Patient was educated at the time discharge on complete alcohol, tobacco and coca ine cessation. Time Spent with Patient Time attestation: Total time spent providing and/or coordinating discharge services: Physical Exam Vital Signs: Vital Signs: Last Vital Signs Temp 97.5 F 03/20/20 08:00 Pulse 64 03/20/20 08:00 Resp 20 03/20/20 08:00 BP 129/82 03/20/20 08:00 Pulse Ox 97 03/20/20 08:00 Body Mass Index 28.1 General - no acute distress, appears comfortable Cardiovascular - regular rate and rhythm, S1-S2 Lungs - normal respiratory effort, clear to auscultation bilaterally, no wheezing Abdomen - soft, nontender, no rebound or guarding Extremities - no edema bilaterally Neuro - awake and alert, no focal deficits DS: Data Data Completed and Pending Labs on day of discharge: Laboratory Last Values WBC 6.8 X10*3/uL (4.8-10.8) 03/20/20 06:00 RBC 4.62 X10*6/uL (4.60-5.80) 03/20/20 06:00 Hgb 13.9 g/dl (14.0-18.0) L 03/20/20 06:00 Hct 40.7 % (42-52) L 03/20/20 06:00 MCV 88.1 fL (80-98) 03/20/20 06:00 MCH 30.1 pg (27.0-33.0) 03/20/20 06:00 MCHC 34.2 g/dl (31.0-36.0) 03/20/20 06:00 RDW 12.2 % (11.0-16.0) 03/20/20 06:00 Plt Count 338 X10*3/uL (160-400) 03/20/20 06:00 MPV 10.2 fL (9.4-12.4) 03/20/20 06:00 Immature Gran % (Auto) 0.5 % (0.0-0.4) H 03/15/20 15:30 Neut % (Auto) 78.4 % (45-73) H 03/15/20 15:30 Lymph % (Auto) 15.4 % (20-40) L 03/15/20 15:30 [place] % (Auto) 5.5 % (2-11) 03/15/20 15:30 Eos % (Auto) 0.0 % (0-4) 03/15/20 15:30 Baso % (Auto) 0.2 % (0-2) 03/15/20 15:30 Lymph # (Auto) 1.3 X10*3/uL (1.2-4.9) 03/15/20 15:30 [place] # (Auto) 0.5 X10*3/uL (0.1-1.2) 03/15/20 15:30 Eos # (Auto) 0.0 X10*3/uL (0.0-0.4) 03/15/20 15:30 Baso # (Auto) 0.0 X10*3/uL (0.0-0.2) 03/15/20 15:30 Abs Immat Gran (auto) 0.04 X10*3/uL (0.00-0.03) H 03/15/20 15:30 Absolute Neuts (auto) 6.5 X10*3/uL (2.0-8.3) 03/15/20 15:30 Absolute Nucleated RBC 0.000 X10*3/uL (0.0-0.012) 03/20/20 06:00 Nucleated RBC % (auto) 0.0 /100WBC (0.0-0.2) 03/20/20 06:00 Smear Tech's Comments VERIFIED 03/13/20 13:46 PT 12.5 SEC (10.8-13.0) 03/13/20 13:46 INR 1.1 (0.9-1.1) 03/13/20 13:46 D-Dimer 361 NG/ML 03/18/20 05:41 Sodium 138 mmol/L (135-145) 03/20/20 06:20 Potassium 4.0 mmol/l (3.3-5.1) 03/20/20 06:20 Chloride 105 mmol/L (96-108) 03/20/20 06:20 Carbon Dioxide 25 mmol/L (22-29) 03/20/20 06:20 Anion Gap 12 (12-20) 03/20/20 06:20 BUN 15 mg/dL (9-16) 03/20/20 06:20 Creatinine 0.93 mg/dL (0.5-1.4) 03/20/20 06:20 Estim Creat Clear Calc 103.6 03/20/20 06:20 Estimated GFR > 60 03/20/20 06:20 Random Glucose 89 mg/dL (60-115) 03/20/20 06:20 Lactic Acid 2.2 mmol/L (0.5-2.0) H* 03/14/20 02:24 Lactic Acid Fup @ 2Hr 1.8 mmol/L (0.5-2.0) 03/14/20 04:36 Lactic Acid Fup @ 4Hr 7.7 mmol/L (0.5-2.0) H* 03/13/20 20:48 Calcium 8.1 mg/dL (8.4-10.2) L 03/20/20 06:20 Magnesium 2.1 mg/dL (1.6-2.6) 03/14/20 04:36 Ferritin 337 ng/mL (20-250) H 03/13/20 13:47 Total Bilirubin 0.4 mg/dL (0.0-1.0) 03/13/20 13:47 Direct Bilirubin < 0.2 mg/dL (0.0-0.5) 03/13/20 13:47 AST 33 U/L (5-37) 03/13/20 13:47 ALT 28 U/L (0-40) 03/13/20 13:47 Alkaline Phosphatase 78 U/L (39-117) 03/13/20 13:47 Lactate Dehydrogenase 293 U/L (118-273) H 03/19/20 07:02 Troponin I High Sens 3.9 ng/L (<3.5-35.0) 03/13/20 13:47 C-Reactive Protein 3.18 mg/dL (< or = 0.50) H 03/19/20 07:02 C-React Prot High Sens >10.0 mg/L H 03/15/20 15:30 Total Protein 7.1 g/dL (6.5-8.0) 03/13/20 13:47 Albumin 4.2 g/dL (3.5-5.0) 03/13/20 13:47 Procalcitonin 0.09 ng/mL 03/18/20 05:41 Urine Color YELLOW 03/14/20 02:45 Urine Appearance CLEAR 03/14/20 02:45 Urine pH 6.0 (5.0-8.0) 03/14/20 02:45 Ur Specific [place] 1.010 (1.005-1.025) 03/14/20 02:45 Urine Protein NEG MG/DL (NEG-TRACE) 03/14/20 02:45 Urine Glucose (UA) >=1000 MG/DL (NEG) H 03/14/20 02:45 Urine Ketones NEG MG/DL (NEG) 03/14/20 02:45 Urine Blood NEG (NEG) 03/14/20 02:45 Urine Nitrite NEG (NEG) 03/14/20 02:45 Ur Leukocyte Esterase NEG (NEG) 03/14/20 02:45 Urine RBC 0 /HPF (0) 03/14/20 02:45 Urine WBC 0 /HPF (0-4) 03/14/20 02:45 Ur Squamous Epith Cells NONE /LPF 03/14/20 02:45 Urine Bacteria NONE /LPF 03/14/20 02:45 Urine Opiates Screen POSITIVE (Not Detect) H 03/14/20 02:47 Ur Barbiturates Screen POSITIVE (Not Detect) H 03/14/20 02:47 Ur Phencyclidine Scrn Not Detected (Not Detect) 03/14/20 02:47 Ur Amphetamines Screen Not Detected (Not Detect) 03/14/20 02:47 U Benzodiazepines Scrn Not Detected (Not Detect) 03/14/20 02:47 Urine Cocaine Screen POSITIVE (Not Detect) H 03/14/20 02:47 U Marijuana (THC) Screen Not Detected (Not Detect) 03/14/20 02:47 Ethyl Alcohol < 10 mg/dL 03/13/20 13:47 Respiratory Panel Simpson See Note 03/13/20 13:37 Adenovirus (Rapid PCR) Not Detected (Not Detect.) 03/13/20 13:37 B.pert (TEM-PCR) Not Detected (Not Detect.) 03/13/20 13:37 B.parapertussis DNA PCR Not Detected (Not Detect.) 03/13/20 13:37 C. pneumoniae DNA (PCR) Not Detected (Not Detect.) 03/13/20 13:37 Coronavirus OC43 (PCR) Not Detected (Not Detect.) 03/13/20 13:37 Coronavirus HKU1 (PCR) Not Detected (Not Detect.) 03/13/20 13:37 Coronavirus 229E (PCR) Not Detected (Not Detect.) 03/13/20 13:37 Coronavirus NL63 (PCR) Not Detected (Not Detect.) 03/13/20 13:37 Human Metapneumovir PCR Not Detected (Not Detect.) 03/13/20 13:37 Influenza A (RT-PCR) Not Detected (Not Detect.) 03/13/20 13:37 Influenza B (RT-PCR) Not Detected (Not Detect.) 03/13/20 13:37 M. pneumoniae (PCR) Not Detected (Not Detect.) 03/13/20 13:37 Parainfluenza 1 (PCR) Not Detected (Not Detect.) 03/13/20 13:37 Parainfluenza 2 (PCR) Not Detected (Not Detect.) 03/13/20 13:37 Parainfluenza 3 (PCR) Not Detected (Not Detect.) 03/13/20 13:37 Parainfluenza 4 (PCR) Not Detected (Not Detect.) 03/13/20 13:37 RSV (PCR) Not Detected (Not Detect.) 03/13/20 13:37 Entero/Rhino (PCR) Not Detected (Not Detect.) 03/13/20 13:37 SARS-CoV-2 RNA (RT-PCR) Detected (Not Detect.) A 03/13/20 13:37 Discharge Plan Discharge Patient Disposition: Home, Self-Care Referrals: Physician,None [Primary Care Provider] - Discharge Medications: New nicotine [Nicoderm CQ] 21 mg/24 hr patch 24 hour 1 patch transdermal DAILY Qty: 14 RF: 0 hydroxyzine HCl 25 mg tablet 25 mg PO BID PRN (Reason: anxiety) Qty: 30 RF: 0 Discharge Orders: Discharge Order (Routine); Ordered 03/20/20 Ordered By: Bernabe Blanchard Diet: advance to usual diet Activity on Discharge: As tolerated Discharge Date/Time: 03/20/20 09:18 Visit Report Forms: Patient Portal Discharge page Care Plan Goals: To stay healthy and out of the hospital. Health Concerns: COVID Alcohol abuse Cocaine Abuse Tobacco Abuse Plan of Treatment: COVID - self isolate Alcohol abuse - do not drink Cocaine Abuse - do not use cocaine Tobacco Abuse - do not smoke tobacco, use nicoderm
== END 2020-03-20 09:18 | disposition home or self-care (01) | DRG 720 ==
LOC: HO.ED 16:21 → HO.IMC 18:16
PROVIDERS: Internal Medicine; Physician Assistant Medical; Admitting Provider Hospitalist; Emergency Provider Emergency Medicine; Visit Provider Family Medicine
DX: A41.89 Other specified sepsis (principal); U07.1 COVID-19; E87.2 Acidosis; F31.9 Bipolar disorder, unspecified; F14.10 Cocaine abuse, uncomplicated; G89.29 Other chronic pain; E86.0 Dehydration; L27.0 Generalized skin eruption due to drugs and medicaments taken internally; T39.1X5A Adverse effect of 4-Aminophenol derivatives, initial encounter; F41.9 Anxiety disorder, unspecified; Y92.239 Unspecified place in hospital as the place of occurrence of the external cause; F10.20 Alcohol dependence, uncomplicated; K29.20 Alcoholic gastritis without bleeding; F17.210 Nicotine dependence, cigarettes, uncomplicated; Z71.6 Tobacco abuse counseling; Z88.5 Allergy status to narcotic agent; Z88.6 Allergy status to analgesic agent
CPT/HCPCS: 36415; 71045; 71275; 80048; 80076; 80307; 80320; 81001; 82728; 83605; 83615; 83735; 84145; 84484; 85025; 85027; 85379; 85610; 86140; 86141; 87040; 87147; 87633; 93005; 94640; 94644; 96361; 96374; 96375; 99285; 99291; J1200; J1650; J1885; J2060; J2270; J2405; J2560; J2930; Q9967

== ENCOUNTER 2021-01-09 12:39 | Emergency (ER) | payer MEDICAID, SELFPAY ==
--- NOTE | ~2021-01-09 | XR_ITS ---
EXAMINATION: XR CHEST CLINICAL INFORMATION: Chest pain and shortness of breath COMPARISON: Previous chest x-ray February 2020 TECHNIQUE: Frontal view of the chest was obtained. FINDINGS: The cardiac and mediastinal contours are normal. The lungs are clear. There is no pleural effusion or pneumothorax. There are degenerative changes of the spine. XR/XR chest 1V IMPRESSION: No evidence for acute disease in the chest.
[2021-01-09 12:57] VITALS: BP 152/101; PULSE 101; RESP 26; TEMP 38.3; O2SAT 94; BMI 28.1
--- NOTE | 2021-01-09 13:01 | ECG_ITS ---
Test Reason : CHEST PAIN Blood Pressure : / mmHG Vent. Rate : 100 BPM Atrial Rate : 100 BPM P-R Int : 150 ms QRS Dur : 092 ms QT Int : 316 ms P-R-T Axes : 096 -25 -12 degrees QTc Int : 407 ms Normal sinus rhythm ST elevation in Anterior leads Abnormal ECG When compared with ECG of 13-MAR-2020 15:43, ST elevation has replaced ST depression in Anterior leads Referred By: Generic ED Physician Electronically Signed By:CHUCK DIAZ
[2021-01-09] MEDS: Acetaminophen 325 MG TABLET 975 MG PO (14:09)
--- NOTE | 2021-01-09 14:11 | ED.SOB ---
HPI - SOB/Dyspnea General Chief Complaint: Dyspnea <BAILEE Martins - Last Filed: 01/09/21 14:13> Stated Complaint: diff breathing - fever <BAILEE Martins - Last Filed: 01/09/21 14:13> Time Seen by Provider: 01/09/21 14:07 <BAILEE Martins - Last Filed: 01/09/21 14:13> Source: patient <Fransisca Kelsey DO - Last Filed: 01/09/21 17:28> Mode of arrival: ambulatory <Fransisca Kelsey DO - Last Filed: 01/09/21 17:28> Limitations: no limitations <Fransisca Kelsey DO - Last Filed: 01/09/21 17:28> History of Present Illness MD elicited complaint: shortness of breath, cough, pain with inspiration and chest pain <Fransisca Kelsey DO - Last Filed: 01/09/21 17:28> Pertinent past history: other (received COVID vaccine 2 days ago ) <Fransisca Kelsey DO - Last Filed: 01/09/21 17:28> Onset (ago): day(s) (2) <Fransisca Kelsey DO - Last Filed: 01/09/21 17:28> Context: other (vaccine admin) <Fransisca Kelsey DO - Last Filed: 01/09/21 17:28> Timing: progressively worsening <Fransisca Kelsey DO - Last Filed: 01/09/21 17:28> Severity: severe <Fransisca Kelsey DO - Last Filed: 01/09/21 17:28> Exacerbating factors: exertion, coughing and inspiration <Fransisca Kelsey DO - Last Filed: 01/09/21 17:28> Relieving factors: nothing <Fransisca Kelsey DO - Last Filed: 01/09/21 17:28> Known history of: other (he denies but smokes 2 packs of cigarettes a day) <Fransisca Kelsey DO - Last Filed: 01/09/21 17:28> Associated symptoms: chest pain, pain with inspiration, fever, cough and lightheadedness <Fransisca Kelsey DO - Last Filed: 01/09/21 17:28> Treatment prior to arrival: other (800mg motrin at home) <Fransisca Kelsey DO - Last Filed: 01/09/21 17:28> Related Data Home Medications: Previous Rx's Medication Instructions Recorded nicotine 21 mg/24 hr daily 1 patch TRANSDERMAL DAILY #14 ea 03/19/20 transdermal patch (Nicoderm CQ) hydroxyzine HCl 25 mg tablet 25 mg PO BID PRN #30 tab 03/20/20 <BAILEE Martins - Last Filed: 01/09/21 14:13> Allergies/Adverse Reactions: Allergies Allergy/AdvReac Type Severity Reaction Status Date / Time acetaminophen [From PERCOCET] AdvReac Unknown Rash Verified 03/15/20 12:44 oxycodone [From PERCOCET] AdvReac Unknown NAUSEA & Verified 03/15/20 12:39 VOMITING <BAILEE Martnis - Last Filed: 01/09/21 14:13> Review of Systems Review of Systems: Constitutional : No Weight loss, pos Fever, pos Chills ENT/Mouth : No sore throat, No Rhinorrhea Eyes: No Eye Pain, No Swelling Cardiovascular : pos Chest Pain, pos SOB, pos Dyspnea on Exertion, No Orthopnea, No Edema, No Palpitations Respiratory : pos Cough, No Sputum Gastrointestinal : pos Nausea, No Vomiting, No Diarrhea, No abdominal Pain, No Hematochezia, No Melena Genitourinary : No Dysuria, No Urinary Frequency Musculoskeletal : No joint pain, pos Myalgias, No Joint Swelling Skin : No Skin Lesions, No rash Neuro :pos Weakness, No Numbness, No Dizziness, No Headache Psych : No Anxiety/Panic, No Depression Heme/Lymph: No Bruising, No Lymphadenopathy Endocrine : No Polyuria, No Polydipsia All other systems reviewed and are negative <Fransisca Kelsey DO - Last Filed: 01/09/21 17:28> PMFSH Past Medical History Attestation statement: The following information was validated with the patient. <Fransisca Kelsey DO - Last Filed: 01/09/21 17:28> Medical History: Medical History Alcohol abuse Bipolar disorder Cocaine abuse Current every day smoker Mood disorder <BAILEE Martins - Last Filed: 01/09/21 14:13> Social History Social History: Social History Household Members: Other Housing: House Do you presently have visiting nurse or other home services: No Cigarettes Per Day: 20 Second Hand Smoke Exposure: No Substance Use Type: Crack/Cocaine Advance Directives: Yes Advance Directives Information Provided: No Advance Directives on File: No service: No Current occupational status: unemployed <BAILEE Martins - Last Filed: 01/09/21 14:13> Physical Exam Vital Signs: Vital Signs: Last Vital Signs Temp 101 F H 01/09/21 12:57 Pulse 104 H 01/09/21 15:35 Resp 26 H 01/09/21 12:57 BP 114/68 01/09/21 15:35 Pulse Ox 96 01/09/21 15:35 Body Mass Index 28.1 <BAILEE Martins - Last Filed: 01/09/21 14:13> Vital Signs: Last Vital Signs Temp 101 F H 01/09/21 12:57 Pulse 104 H 01/09/21 15:35 Resp 26 H 01/09/21 12:57 BP 114/68 01/09/21 15:35 Pulse Ox 96 01/09/21 15:35 Body Mass Index 28.1 <Fransisca Kelsey DO - Last Filed: 01/09/21 17:28> Appearance: Alert. Oriented X3. Anxious mild acute distress. Eyes: Pupils equal, round and reactive to light. ENT: Pharynx normal. Neck: Normal inspection. Neck supple. CVS: tachycardic heart rate and rhythm. Pulses normal. Respiratory: No respiratory distress. Breath sounds diffuse end exp wheezes Abdomen: Soft and nontender. Skin: Skin warm and dry. Normal skin color. Normal skin turgor. Extremities: No lower extremity edema. No calf ttp Neuro: Oriented X 3. No motor deficit. No sensory deficit. <Fransisca Kelsey DO - Last Filed: 01/09/21 17:28> Course Course Course Narrative: 14pm - 45-year-old male who tested positive for COVID February 2020 presenting to the ED with complaints of fevers, chills, body aches, chest pain, shortness of breath with pascal/black/streaks of blood sputum production with cough with associated pain with deep inspiration that started yesterday worse today. On exam patient is alert oriented x3. He is hypertensive/tachycardic/tachypneic and febrile. Oxygen is 94% on room air. Will obtain labs including a D-dimer and troponin, chest x-ray, EKG, COVID/RSV/flu swab. We provided 975 mg of Tylenol in triage. Patient reports he took 100 mg of Motrin prior to arrival. Patient will be going in to room shortly for further evaluation and treatment. <BAILEE Martins - Last Filed: 01/09/21 14:13> 14pm - 45-year-old male who tested positive for COVID February 2020 presenting to the ED with complaints of fevers, chills, body aches, chest pain, shortness of breath with pascal/black/streaks of blood sputum production with cough with associated pain with deep inspiration that started yesterday worse today. On exam patient is alert oriented x3. He is hypertensive/tachycardic/tachypneic and febrile. Oxygen is 94% on room air. Will obtain labs including a D-dimer and troponin, chest x-ray, EKG, COVID/RSV/flu swab. We provided 975 mg of Tylenol in triage. Patient reports he took 100 mg of Motrin prior to arrival. Patient will be going in to room shortly for further evaluation and treatment. 526pm - workup negative, EKG, CXR, troponin and ddimer negative no PE , no myocarditis stable for DC <Fransisca Kelsey DO - Last Filed: 01/09/21 17:28> MDM - SOB/Dyspnea MDM Narrative Medical decision making narrative: 45 yo male heavy smoker here with chest pain that is pleuritic fevers feels terrible 2 days post vaccine - at this time could be response to the vaccine vs myocarditis/PE - labs, ddimer, CXR, troponin, EKG - tylenol and INH ordered dispo per results and findings. <Fransisca Kelsey DO - Last Filed: 01/09/21 17:28> Lab Data Result diagrams: : 01/09/21 15:49 01/09/21 15:49 <BAILEE Martins - Last Filed: 01/09/21 14:13> Labs: Lab Results 01/09/21 01/09/21 01/09/21 Range/Units 15:49 15:49 15:49 WBC 8.8 (4.8-10.8) X10*3/uL RBC 5.08 (4.60-5.80) X10*6/uL Hgb 16.2 (14.0-18.0) g/dl Hct 46.1 (42-52) % MCV 90.7 (80-98) fL MCH 31.9 (27.0-33.0) pg MCHC 35.1 (31.0-36.0) g/dl RDW 12.3 (11.0-16.0) % Plt Count 224 D (160-400) X10*3/uL MPV 10.6 (9.4-12.4) fL Immature Gran % (Auto) 0.5 H (0.0-0.4) % Neut % (Auto) 78.4 H (45-73) % Lymph % (Auto) 11.5 L (20-40) % [place] % (Auto) 9.2 (2-11) % Eos % (Auto) 0.1 (0-4) % Baso % (Auto) 0.3 (0-2) % Lymph # (Auto) 1.0 L (1.2-4.9) X10*3/uL [place] # (Auto) 0.8 (0.1-1.2) X10*3/uL Eos # (Auto) 0.0 (0.0-0.4) X10*3/uL Baso # (Auto) 0.0 (0.0-0.2) X10*3/uL Abs Immat Gran (auto) 0.04 H (0.00-0.03) X10*3/uL Absolute Neuts (auto) 6.9 (2.0-8.3) X10*3/uL Absolute Nucleated RBC 0.000 (0.0-0.012) X10*3/uL Nucleated RBC % (auto) 0.0 (0.0-0.2) /100WBC PT (9.9-13.0) SEC INR (0.9-1.1) APTT (24.1-38.0) SEC D-Dimer NG/ML Sodium 136 (135-145) mmol/L Potassium 4.4 (3.3-5.1) mmol/L Chloride 105 (96-108) mmol/L Carbon Dioxide 23 (22-29) mmol/L Anion Gap 12 (12-20) BUN 8 L (9-16) mg/dL Creatinine 1.28 (0.5-1.4) mg/dL Estim Creat Clear Calc 75.3 Estimated GFR > 60 Random Glucose 103 (60-115) mg/dL Lactic Acid (0.5-2.0) mmol/L Calcium 10.2 D (8.4-10.2) mg/dL Troponin I High Sens 3.7 (<3.5-35.0) ng/L B-Natriuretic Peptide 12 (<100) pg/mL Urine Color Urine Appearance Urine pH (5.0-8.0) Ur Specific Emblem (1.005-1.025) Urine Protein (NEG-TRACE) MG/DL Urine Glucose (UA) (NEG) MG/DL Urine Ketones (NEG) MG/DL Urine Blood (NEG) Urine Nitrite (NEG) Ur Leukocyte Esterase (NEG) Coronavirus (PCR) (Negative) Influenza Type A (PCR) (Negative) Influenza Type B (PCR) (Negative) RSV RNA Qual (PCR) (Negative) 01/09/21 01/09/21 01/09/21 Range/Units 15:49 15:49 15:49 WBC (4.8-10.8) X10*3/uL RBC (4.60-5.80) X10*6/uL Hgb (14.0-18.0) g/dl Hct (42-52) % MCV (80-98) fL MCH (27.0-33.0) pg MCHC (31.0-36.0) g/dl RDW (11.0-16.0) % Plt Count (160-400) X10*3/uL MPV (9.4-12.4) fL Immature Gran % (Auto) (0.0-0.4) % Neut % (Auto) (45-73) % Lymph % (Auto) (20-40) % [place] % (Auto) (2-11) % Eos % (Auto) (0-4) % Baso % (Auto) (0-2) % Lymph # (Auto) (1.2-4.9) X10*3/uL [place] # (Auto) (0.1-1.2) X10*3/uL Eos # (Auto) (0.0-0.4) X10*3/uL Baso # (Auto) (0.0-0.2) X10*3/uL Abs Immat Gran (auto) (0.00-0.03) X10*3/uL Absolute Neuts (auto) (2.0-8.3) X10*3/uL Absolute Nucleated RBC (0.0-0.012) X10*3/uL Nucleated RBC % (auto) (0.0-0.2) /100WBC PT 10.7 (9.9-13.0) SEC INR 0.9 (0.9-1.1) APTT 28.9 (24.1-38.0) SEC D-Dimer < 200 NG/ML Sodium (135-145) mmol/L Potassium (3.3-5.1) mmol/L Chloride (96-108) mmol/L Carbon Dioxide (22-29) mmol/L Anion Gap (12-20) BUN (9-16) mg/dL Creatinine (0.5-1.4) mg/dL Estim Creat Clear Calc Estimated GFR Random Glucose (60-115) mg/dL Lactic Acid 1.1 (0.5-2.0) mmol/L Calcium (8.4-10.2) mg/dL Troponin I High Sens (<3.5-35.0) ng/L B-Natriuretic Peptide (<100) pg/mL Urine Color Urine Appearance Urine pH (5.0-8.0) Ur Specific Emblem (1.005-1.025) Urine Protein (NEG-TRACE) MG/DL Urine Glucose (UA) (NEG) MG/DL Urine Ketones (NEG) MG/DL Urine Blood (NEG) Urine Nitrite (NEG) Ur Leukocyte Esterase (NEG) Coronavirus (PCR) NEGATIVE (Negative) Influenza Type A (PCR) NEGATIVE (Negative) Influenza Type B (PCR) NEGATIVE (Negative) RSV RNA Qual (PCR) NEGATIVE (Negative) 01/09/21 Range/Units 16:57 WBC (4.8-10.8) X10*3/uL RBC (4.60-5.80) X10*6/uL Hgb (14.0-18.0) g/dl Hct (42-52) % MCV (80-98) fL MCH (27.0-33.0) pg MCHC (31.0-36.0) g/dl RDW (11.0-16.0) % Plt Count (160-400) X10*3/uL MPV (9.4-12.4) fL Immature Gran % (Auto) (0.0-0.4) % Neut % (Auto) (45-73) % Lymph % (Auto) (20-40) % [place] % (Auto) (2-11) % Eos % (Auto) (0-4) % Baso % (Auto) (0-2) % Lymph # (Auto) (1.2-4.9) X10*3/uL [place] # (Auto) (0.1-1.2) X10*3/uL Eos # (Auto) (0.0-0.4) X10*3/uL Baso # (Auto) (0.0-0.2) X10*3/uL Abs Immat Gran (auto) (0.00-0.03) X10*3/uL Absolute Neuts (auto) (2.0-8.3) X10*3/uL Absolute Nucleated RBC (0.0-0.012) X10*3/uL Nucleated RBC % (auto) (0.0-0.2) /100WBC PT (9.9-13.0) SEC INR (0.9-1.1) APTT (24.1-38.0) SEC D-Dimer NG/ML Sodium (135-145) mmol/L Potassium (3.3-5.1) mmol/L Chloride (96-108) mmol/L Carbon Dioxide (22-29) mmol/L Anion Gap (12-20) BUN (9-16) mg/dL Creatinine (0.5-1.4) mg/dL Estim Creat Clear Calc Estimated GFR Random Glucose (60-115) mg/dL Lactic Acid (0.5-2.0) mmol/L Calcium (8.4-10.2) mg/dL Troponin I High Sens (<3.5-35.0) ng/L B-Natriuretic Peptide (<100) pg/mL Urine Color YELLOW Urine Appearance CLEAR Urine pH 6.0 (5.0-8.0) Ur Specific Emblem <= 1.005 (1.005-1.025) Urine Protein NEG (NEG-TRACE) MG/DL Urine Glucose (UA) NEG (NEG) MG/DL Urine Ketones NEG (NEG) MG/DL Urine Blood NEG (NEG) Urine Nitrite NEG (NEG) Ur Leukocyte Esterase NEG (NEG) Coronavirus (PCR) (Negative) Influenza Type A (PCR) (Negative) Influenza Type B (PCR) (Negative) RSV RNA Qual (PCR) (Negative) <BAILEE Martins - Last Filed: 01/09/21 14:13> Lab Results 01/09/21 01/09/21 01/09/21 Range/Units 15:49 15:49 15:49 WBC 8.8 (4.8-10.8) X10*3/uL RBC 5.08 (4.60-5.80) X10*6/uL Hgb 16.2 (14.0-18.0) g/dl Hct 46.1 (42-52) % MCV 90.7 (80-98) fL MCH 31.9 (27.0-33.0) pg MCHC 35.1 (31.0-36.0) g/dl RDW 12.3 (11.0-16.0) % Plt Count 224 D (160-400) X10*3/uL MPV 10.6 (9.4-12.4) fL Immature Gran % (Auto) 0.5 H (0.0-0.4) % Neut % (Auto) 78.4 H (45-73) % Lymph % (Auto) 11.5 L (20-40) % [place] % (Auto) 9.2 (2-11) % Eos % (Auto) 0.1 (0-4) % Baso % (Auto) 0.3 (0-2) % Lymph # (Auto) 1.0 L (1.2-4.9) X10*3/uL [place] # (Auto) 0.8 (0.1-1.2) X10*3/uL Eos # (Auto) 0.0 (0.0-0.4) X10*3/uL Baso # (Auto) 0.0 (0.0-0.2) X10*3/uL Abs Immat Gran (auto) 0.04 H (0.00-0.03) X10*3/uL Absolute Neuts (auto) 6.9 (2.0-8.3) X10*3/uL Absolute Nucleated RBC 0.000 (0.0-0.012) X10*3/uL Nucleated RBC % (auto) 0.0 (0.0-0.2) /100WBC PT (9.9-13.0) SEC INR (0.9-1.1) APTT (24.1-38.0) SEC D-Dimer NG/ML Sodium 136 (135-145) mmol/L Potassium 4.4 (3.3-5.1) mmol/L Chloride 105 (96-108) mmol/L Carbon Dioxide 23 (22-29) mmol/L Anion Gap 12 (12-20) BUN 8 L (9-16) mg/dL Creatinine 1.28 (0.5-1.4) mg/dL Estim Creat Clear Calc 75.3 Estimated GFR > 60 Random Glucose 103 (60-115) mg/dL Lactic Acid (0.5-2.0) mmol/L Calcium 10.2 D (8.4-10.2) mg/dL Troponin I High Sens 3.7 (<3.5-35.0) ng/L B-Natriuretic Peptide 12 (<100) pg/mL Urine Color Urine Appearance Urine pH (5.0-8.0) Ur Specific Emblem (1.005-1.025) Urine Protein (NEG-TRACE) MG/DL Urine Glucose (UA) (NEG) MG/DL Urine Ketones (NEG) MG/DL Urine Blood (NEG) Urine Nitrite (NEG) Ur Leukocyte Esterase (NEG) Coronavirus (PCR) (Negative) Influenza Type A (PCR) (Negative) Influenza Type B (PCR) (Negative) RSV RNA Qual (PCR) (Negative) 01/09/21 01/09/21 01/09/21 Range/Units 15:49 15:49 15:49 WBC (4.8-10.8) X10*3/uL RBC (4.60-5.80) X10*6/uL Hgb (14.0-18.0) g/dl Hct (42-52) % MCV (80-98) fL MCH (27.0-33.0) pg MCHC (31.0-36.0) g/dl RDW (11.0-16.0) % Plt Count (160-400) X10*3/uL MPV (9.4-12.4) fL Immature Gran % (Auto) (0.0-0.4) % Neut % (Auto) (45-73) % Lymph % (Auto) (20-40) % [place] % (Auto) (2-11) % Eos % (Auto) (0-4) % Baso % (Auto) (0-2) % Lymph # (Auto) (1.2-4.9) X10*3/uL [place] # (Auto) (0.1-1.2) X10*3/uL Eos # (Auto) (0.0-0.4) X10*3/uL Baso # (Auto) (0.0-0.2) X10*3/uL Abs Immat Gran (auto) (0.00-0.03) X10*3/uL Absolute Neuts (auto) (2.0-8.3) X10*3/uL Absolute Nucleated RBC (0.0-0.012) X10*3/uL Nucleated RBC % (auto) (0.0-0.2) /100WBC PT 10.7 (9.9-13.0) SEC INR 0.9 (0.9-1.1) APTT 28.9 (24.1-38.0) SEC D-Dimer < 200 NG/ML Sodium (135-145) mmol/L Potassium (3.3-5.1) mmol/L Chloride (96-108) mmol/L Carbon Dioxide (22-29) mmol/L Anion Gap (12-20) BUN (9-16) mg/dL Creatinine (0.5-1.4) mg/dL Estim Creat Clear Calc Estimated GFR Random Glucose (60-115) mg/dL Lactic Acid 1.1 (0.5-2.0) mmol/L Calcium (8.4-10.2) mg/dL Troponin I High Sens (<3.5-35.0) ng/L B-Natriuretic Peptide (<100) pg/mL Urine Color Urine Appearance Urine pH (5.0-8.0) Ur Specific Emblem (1.005-1.025) Urine Protein (NEG-TRACE) MG/DL Urine Glucose (UA) (NEG) MG/DL Urine Ketones (NEG) MG/DL Urine Blood (NEG) Urine Nitrite (NEG) Ur Leukocyte Esterase (NEG) Coronavirus (PCR) NEGATIVE (Negative) Influenza Type A (PCR) NEGATIVE (Negative) Influenza Type B (PCR) NEGATIVE (Negative) RSV RNA Qual (PCR) NEGATIVE (Negative) 01/09/21 Range/Units 16:57 WBC (4.8-10.8) X10*3/uL RBC (4.60-5.80) X10*6/uL Hgb (14.0-18.0) g/dl Hct (42-52) % MCV (80-98) fL MCH (27.0-33.0) pg MCHC (31.0-36.0) g/dl RDW (11.0-16.0) % Plt Count (160-400) X10*3/uL MPV (9.4-12.4) fL Immature Gran % (Auto) (0.0-0.4) % Neut % (Auto) (45-73) % Lymph % (Auto) (20-40) % [place] % (Auto) (2-11) % Eos % (Auto) (0-4) % Baso % (Auto) (0-2) % Lymph # (Auto) (1.2-4.9) X10*3/uL [place] # (Auto) (0.1-1.2) X10*3/uL Eos # (Auto) (0.0-0.4) X10*3/uL Baso # (Auto) (0.0-0.2) X10*3/uL Abs Immat Gran (auto) (0.00-0.03) X10*3/uL Absolute Neuts (auto) (2.0-8.3) X10*3/uL Absolute Nucleated RBC (0.0-0.012) X10*3/uL Nucleated RBC % (auto) (0.0-0.2) /100WBC PT (9.9-13.0) SEC INR (0.9-1.1) APTT (24.1-38.0) SEC D-Dimer NG/ML Sodium (135-145) mmol/L Potassium (3.3-5.1) mmol/L Chloride (96-108) mmol/L Carbon Dioxide (22-29) mmol/L Anion Gap (12-20) BUN (9-16) mg/dL Creatinine (0.5-1.4) mg/dL Estim Creat Clear Calc Estimated GFR Random Glucose (60-115) mg/dL Lactic Acid (0.5-2.0) mmol/L Calcium (8.4-10.2) mg/dL Troponin I High Sens (<3.5-35.0) ng/L B-Natriuretic Peptide (<100) pg/mL Urine Color YELLOW Urine Appearance CLEAR Urine pH 6.0 (5.0-8.0) Ur Specific Emblem <= 1.005 (1.005-1.025) Urine Protein NEG (NEG-TRACE) MG/DL Urine Glucose (UA) NEG (NEG) MG/DL Urine Ketones NEG (NEG) MG/DL Urine Blood NEG (NEG) Urine Nitrite NEG (NEG) Ur Leukocyte Esterase NEG (NEG) Coronavirus (PCR) (Negative) Influenza Type A (PCR) (Negative) Influenza Type B (PCR) (Negative) RSV RNA Qual (PCR) (Negative) <Fransisca Kelsey DO - Last Filed: 01/09/21 17:28> ECG Data Attestation: I personally reviewed and interpreted this ECG as follows: <Fransisca Kelsey DO - Last Filed: 01/09/21 17:28> ECG interpretation date: 01/09/21 <Fransisca Kelsey DO - Last Filed: 01/09/21 17:28> ECG interpretation time: 14:38 <Fransisca Kelsey DO - Last Filed: 01/09/21 17:28> Interpretation: Rate: 93 Rhythm: NSR [place]: left Normal P waves. Normal JE. Normal QRS complex. ST T wave : normal no VALERIE qTC: normal prior studies: no acute ischemia The study has been interpreted contemporaneously by me. . <Fransisca Kelsey DO - Last Filed: 01/09/21 17:28> Discharge Plan Discharge Clinical Impression: Acute viral syndrome Fever Qualifiers: Fever type: due to other condition Qualified Code(s): R50.81 - Fever presenting with conditions classified elsewhere <BAILEE Martins - Last Filed: 01/09/21 14:13> Patient Disposition: Home, Self-Care <BAILEE Martins - Last Filed: 01/09/21 14:13> Instructions: Viral Syndrome (ED), Fever in Adults (ED) <BALIEE Martins - Last Filed: 01/09/21 14:13> Additional Instructions: return to ED for any worsening symptoms or concerns your tests of your heart and blood clot in your lungs were normal. no pneumonia on chest xray. to treat your fevers please use motrin and tylenol COVID PCR TEST WAS NEGATIVE YOU CAN USE INHALER 2 PUFFS EVERY 4 HOURS NEEDED FOR COUGH OR SHORTNESS OF BREATH STOP SMOKING <BAILEE Martins - Last Filed: 01/09/21 14:13> Prescriptions: No Action nicotine [Nicoderm CQ] 21 mg/24 hr patch 24 hour 1 patch transdermal DAILY Qty: 14 RF: 0 hydroxyzine HCl 25 mg tablet 25 mg PO BID PRN (Reason: anxiety) Qty: 30 RF: 0 <BAILEE Martins - Last Filed: 01/09/21 14:13> Stand Alone Forms: Work/School Release <BAILEE Martins - Last Filed: 01/09/21 14:13>
--- NOTE | 2021-01-09 14:24 | ECG_ITS ---
Test Reason : CHEST PAIN Blood Pressure : / mmHG Vent. Rate : 093 BPM Atrial Rate : 093 BPM P-R Int : 156 ms QRS Dur : 090 ms QT Int : 332 ms P-R-T Axes : 040 -08 026 degrees QTc Int : 412 ms Normal sinus rhythm Normal ECG When compared with ECG of 09-JAN-2021 14:16, Nonspecific T wave abnormality, improved in Inferior leads Referred By: Fransisca Kelsey Electronically Signed By:CHUCK DIAZ
[2021-01-09 15:35] VITALS: BP 114/68; PULSE 104; O2SAT 96
[2021-01-09 15:57] LABS: MANUAL DIFF FLAG NO
[2021-01-09 16:00] LABS: Basophils Percent Auto 0.3 % (0-2); Eosinophils Percent Auto 0.1 % (0-4); Hematocrit 46.1 % (42-52); Hemoglobin 16.2 g/dl (14.0-18.0); Imm Gran Abs Auto 0.04 X10*3/uL (0.00-0.03); Imm Gran Pct Auto 0.5 % (0.0-0.4); Lymphocytes Percent Auto 11.5 % (20-40); Mean Corpuscular HGB Conc 35.1 g/dl (31.0-36.0); Mean Corpuscular Hemoglobin 31.9 pg (27.0-33.0); Mean Corpuscular Volume 90.7 fL (80-98); Mean Platelet Volume 10.6 fL (9.4-12.4); Monocytes Absolute Auto 0.8 X10*3/uL (0.1-1.2); Monocytes Percent Auto 9.2 % (2-11); Neutrophils Absolute Auto 6.9 X10*3/uL (2.0-8.3); Neutrophils Percent Auto 78.4 % (45-73); Platelet Count 224 X10*3/uL (160-400); Red Blood Count 5.08 X10*6/uL (4.60-5.80); Red Cell Distribution Width 12.3 % (11.0-16.0); White Blood Count 8.8 X10*3/uL (4.8-10.8)
[2021-01-09 16:05] LABS: INTERNATIONAL NORM RATIO 0.9 (0.9-1.1); Prothrombin Time 10.7 SEC (9.9-13.0)
[2021-01-09 16:08] LABS: D Dimer < 200 NG/ML; Partial Thromboplastin Time 28.9 SEC (24.1-38.0)
[2021-01-09 16:13] LABS: Lactic Acid 1.1 mmol/L (0.5-2.0)
[2021-01-09 16:16] LABS: Anion Gap 12 (12-20); Blood Urea Nitrogen 8 mg/dL (9-16); Calcium 10.2 mg/dL (8.4-10.2); Carbon Dioxide 23 mmol/L (22-29); Chloride 105 mmol/L (96-108); Creatinine Clr Calc Pharmacy 75.3; Estimated Glomerular Filt Rate > 60; Glucose Random 103 mg/dL (60-115); Potassium 4.4 mmol/L (3.3-5.1); Sodium 136 mmol/L (135-145)
[2021-01-09 16:21] LABS: B Type Natriuretic Peptide 12 pg/mL (<100); Troponin-I High Sensitivity 3.7 ng/L (<3.5-35.0)
[2021-01-09 17:04] LABS: Appearance Urine CLEAR; Color Urine YELLOW; Glucose Urine UA NEG (NEG); Leukocyte Esterase Urine NEG (NEG); Nitrite Urine NEG (NEG); Specific Gravity - Urine <= 1.005 (1.005-1.025); Urine Blood NEG (NEG); Urine Ketones NEG (NEG); Urine Protein NEG (NEG-TRACE)
[2021-01-09 17:11] LABS: Influenza A PCR NEGATIVE (Negative); Influenza B PCR NEGATIVE (Negative); Resp Syncy Virus RNA Qual PCR NEGATIVE (Negative); SARS COV2 PCR INHOUSE NEGATIVE (Negative)
== END 2021-01-09 17:44 | disposition home or self-care (01) ==
PROVIDERS: Physician Assistant Medical; Emergency Provider Emergency Medicine
DX: B34.9 Viral infection, unspecified (principal); R50.81 Fever presenting with conditions classified elsewhere; R06.00 Dyspnea, unspecified; R06.02 Shortness of breath; F17.210 Nicotine dependence, cigarettes, uncomplicated; F14.10 Cocaine abuse, uncomplicated; Z20.822 Contact with and (suspected) exposure to COVID-19; Z71.6 Tobacco abuse counseling; Z79.899 Other long term (current) drug therapy
CPT/HCPCS: 0241U; 36415; 71045; 80048; 81003; 83605; 83880; 84484; 85025; 85379; 85610; 85730; 87040; 93005; 99284

== ENCOUNTER 2021-06-26 23:51 | Emergency (ER) | payer MEDICAID, SELFPAY ==
--- NOTE | ~2021-06-26 | XR_ITS ---
EXAMINATION: XR SHOULDER, LEFT CLINICAL INFORMATION: Shoulder injury COMPARISON: None TECHNIQUE: AP external rotation, Grashey, scapular Y, and axillary views of the left shoulder. FINDINGS: The bones and soft tissues are normal. No fracture. Glenohumeral and acromioclavicular alignment is anatomic with normal joint space. No abnormal soft tissue calcifications. XR/XR shoulder LT min 2V IMPRESSION: Normal left shoulder.
[2021-06-26 23:55] VITALS: BP 142/90; PULSE 103; RESP 18; TEMP 36.4; O2SAT 98; BMI 26.6
--- NOTE | 2021-06-27 01:12 | ED.EXTPRO ---
HPI - Extremity Problem General Chief complaint: Extremity Injury, Upper Stated complaint: L arm pain Time Seen by Provider: 06/27/21 00:57 Source: patient Mode of arrival: ambulatory Limitations: no limitations History of Present Illness HPI Narrative: Patient comes to emergency room complaining of pain in the anterior cubital fossa and biceps on the left arm. Prior to arrival, patient was working, patient was trying to lift a VAC with an extended arm and then flex it, patient heard a loud pop coming from biceps. Patient has no pain in the elbow, no shoulder pain, no wrist pain. Patient states that flexing his arm/biceps hurts quite a bit. Related Data Previous Rx's Medication Instructions Recorded nicotine 21 mg/24 hr daily 1 patch TRANSDERMAL DAILY #14 ea 03/19/20 transdermal patch (Nicoderm CQ) hydroxyzine HCl 25 mg tablet 25 mg PO BID PRN #30 tab 03/20/20 ketorolac 10 mg tablet 10 mg PO TID PRN 5 Days #10 tab 06/27/21 Allergies Allergy/AdvReac Type Severity Reaction Status Date / Time acetaminophen [From PERCOCET] AdvReac Unknown Rash Verified 06/26/21 23:55 oxycodone [From PERCOCET] AdvReac Unknown NAUSEA & Verified 06/26/21 23:55 VOMITING Review of Systems Review of Systems: Constitutional : No Weight loss, No Fever, No Chills, No Night Sweats, No Fatigue, No Malaise ENT/Mouth : No Hearing loss, No Ear Pain, No Nasal Congestion, No Sinus Pain, No Hoarseness, No sore throat, No Rhinorrhea, No Swallowing Difficulty Eyes: No Eye Pain, No Swelling, No Redness, No Foreign Body, No Discharge, No Vision Changes Cardiovascular : No Chest Pain, No SOB, No Dyspnea on Exertion, No Orthopnea, No Edema, No Palpitations Respiratory : No Cough, No Sputum, No Wheezing, No Smoke Exposure, No Dyspnea Gastrointestinal : No Nausea, No Vomiting, No Diarrhea, No Constipation, No abdominal Pain, No Hematochezia, No Melena Genitourinary : no irregular bleeding, No Dysuria, No Urinary Frequency, No Hematuria, No Urinary Incontinence, No Urgency, No Flank Pain, No Urinary Flow Changes, No Hesitancy Musculoskeletal : Pain in the anterior aspect of the forearm and in the biceps distal aspect Skin : No Skin Lesions, No rash Neuro : No Weakness, No Numbness, No Paresthesias, No Loss of Consciousness, No Dizziness, No Headache Psych : No Anxiety/Panic, No Depression, No SI/HI/AH/VH, No Social Issues, Heme/Lymph: No Bruising, No Bleeding,No Lymphadenopathy Endocrine : No Polyuria, No Polydipsia, No Temperature Intolerance PMFSH Past Medical History Medical History Alcohol abuse Bipolar disorder Cocaine abuse Current every day smoker Mood disorder Social History Social History Household Members: Other Housing: House Do you presently have visiting nurse or other home services: No Cigarettes Per Day: 20 Second Hand Smoke Exposure: No Substance Use Type: Crack/Cocaine Advance Directives: No service: No Current occupational status: unemployed Physical Exam Vital Signs: Vital Signs: Last Vital Signs Temp 97.5 F 06/26/21 23:55 Pulse 103 H 06/26/21 23:55 Resp 18 06/26/21 23:55 BP 142/90 H 06/26/21 23:55 Pulse Ox 98 06/26/21 23:55 BMI result Body Mass Index 26.6 Const: Other: Appearance: Alert. Oriented X3. No acute distress. Eyes: Pupils equal, round and reactive to light. ENT: Pharynx normal. Neck: Normal inspection. Neck supple. No lymph nodes noted. No crepitus CVS: Normal heart rate and rhythm. Pulses normal. Normal S1 and S2 Respiratory: No respiratory distress. Breath sounds normal. No Wheezing. No rales Abdomen: Soft and nontender. No rigidity. No distention. Skin: Skin warm and dry. Normal skin color. Normal skin turgor. Extremities: No lower extremity edema. On the left arm, patient has a localized bulge at the distal biceps, more prominent when the elbow is flexed, no hematoma present Neuro: Oriented X 3. No motor deficit. No sensory deficit. Moving all extermities. No slurred speech. Course Course Course Narrative: I discussed with the patient that he likely has distal biceps tendon rupture. And instructed to follow-up with orthopedics. Patient given a sling, Toradol injection. Discharge Plan Discharge Clinical Impression: Rupture of distal biceps tendon Patient Disposition: Home, Self-Care Instructions: Tendon Rupture (ED) Additional Instructions: Please follow-up with Orthopedics tomorrow. If you have any worsening or new symptoms, please return to the emergency room or call 911 Prescriptions: New ketorolac 10 mg tablet 10 mg PO TID PRN (Reason: pain) 5 Days Qty: 10 0RF Rx Instructions: Do not take ibuprofen, Motrin, naproxen with his medication, if needed only use Tylenol. No Action nicotine [Nicoderm CQ] 21 mg/24 hr patch 24 hour 1 patch transdermal DAILY Qty: 14 0RF hydroxyzine HCl 25 mg tablet 25 mg PO BID PRN (Reason: anxiety) Qty: 30 0RF Referrals: Deo Ni MD [Physician] - 2 days
[2021-06-27] MEDS: Ketorolac Tromethamine 60 MG/2 ML VIAL IM (01:25)
--- NOTE | 2021-06-27 01:28 | PC.NURSE ---
Pt a&o, no sob or chest pain. medicated per Jun.
== END 2021-06-27 01:42 | disposition home or self-care (01) ==
PROVIDERS: Emergency Provider Emergency Medicine
DX: S46.212A Strain of muscle, fascia and tendon of other parts of biceps, left arm, initial encounter (principal); X50.0XXA Overexertion from strenuous movement or load, initial encounter; Y93.89 Activity, other specified; Y92.9 Unspecified place or not applicable; Y99.0 Civilian activity done for income or pay
CPT/HCPCS: 73030; 96372; 99284; J1885

== ENCOUNTER → 2021-07-20 15:36 | Outpatient (BNVA) | payer MEDICAID, SELFPAY | PROVIDERS: Visit Provider Physician Assistant | DX: S46.212D Strain of muscle, fascia and tendon of other parts of biceps, left arm, subsequent encounter (principal) | CPT/HCPCS: 99202 ==